=== PATIENT | female | born 1960 | race African-American/Black ===

== ENCOUNTER 2019-09-15 11:21 | Inpatient (IN) | payer MEDICAID ==
[~2019-09-15] VITALS: Ht 162.6 cm; Wt 63.5 kg
[2019-09-15] MEDS ORDERED: MORPHINE SULFATE INJ 4 MG/ML DISP.SYRIN ONE (11:40)
[2019-09-15] MEDS ORDERED: ONDANSETRON HCL/PF 4 MG/2 ML VIAL ONE ×2 (11:40→13:28)
--- NOTE | 2019-09-15 11:40 | NUR ---
RLQ ABDOMINAL PAIN W/ N/V SINCE TUESDAY. PATIENT A/OX4, BREATHING EVEN AND UNLABORED, NO SOB NOTED, NEEDS ATTENDED, KEPT COMFORTABLE. PATIENT ASSISTED TO RESTROOM, WAS ABLE TO PROVIDE URINE SAMPLE.
[2019-09-15] MEDS ORDERED: HYDROMORPHONE 1 MG/1 ML DISP.SYRIN ONE (11:59)
[2019-09-15] MEDS ORDERED: IV NS 0.9% 500 ML BAG IV ONE (12:00)
[2019-09-15] MEDS ORDERED: MORPHINE SULFATE INJ 2 MG/ML DISP.SYRIN IV ONE (12:00)
[2019-09-15] MEDS ORDERED: ONDANSETRON HCL/PF 4 MG/2 ML VIAL IVP ONE (12:00)
--- NOTE | 2019-09-15 12:00 | NUR ---
DR. LYONS CANCELLED ORDER FOR MORPHINE AND CHANGED TO DILAUDID 1MG IV. MORPHINE ALREADY OPENED AND WILL BE WASTED.
--- NOTE | 2019-09-15 12:07 | NUR ---
MADE AN ERROR ON OMNICELL. WASTED A WHOLE VIAL OF 4MG MORPHINE WITH DEVORA CUBA RN ON PROPER DISPOSAL BIN. 0MG ADMINISTERED.
[2019-09-15 12:15] LABS: BASOPHILS % (AUTO) 0.7 % (0.0-2.0); HEMATOCRIT 42 % (33-45); LYMPHOCYTES # (AUTO) 0.5 /CMM (0.8-4.8); LYMPHOCYTES % (AUTO) 10.2 % (20.0-44.0); MEAN CORPUSCULAR HGB CONC 34 g/dl (31.0-36.0); MEAN CORPUSCULAR VOLUME 104 fL (82-100); MONOCYTES # (AUTO) 0.4 /CMM (0.1-1.30); MONOCYTES % (AUTO) 7.9 % (2.0-12.0); NEUTROPHILS % (AUTO) 81.2 % (43.0-81.0); PLATELET COUNT (AUTO) 121 /CMM (150-450); WHITE BLOOD COUNT (AUTO) 4.9 K/uL (4.3-11.0)
[2019-09-15] MEDS ORDERED: HYDROMORPHONE 1 MG/1 ML DISP.SYRIN IV ONE (12:30)
[2019-09-15 12:52] LABS: BILIRUBIN,DIRECT 1.5 mg/dL (0.0-0.2); CALCIUM, SERUM 9.7 mg/dL (8.5-10.1); CREATININE 0.9 mg/dL (0.6-1.3); POTASSIUM 4.8 mmol/L (3.5-5.1); TOTAL PROTEIN, SERUM 8.8 g/dL (6.4-8.2)
[2019-09-15] MEDS ORDERED: ONDANSETRON HCL/PF - ER 4 MG/2 ML VIAL IV ONE (13:30)
--- NOTE | 2019-09-15 14:58 | NUR ---
BED 119-1
--- NOTE | 2019-09-15 15:15 | NUR ---
REPORT GIVEN TO [place].
--- NOTE | 2019-09-15 16:00 | NUR ---
PATIENT TRANSFERRED TO ROOM 119-1, IN NO DISTRESS. IV LINE INSERTED ON RIGHT THUMB G22, PATIENT ACCIDENTALLY PULLED OUT WRIST G22.
--- NOTE | 2019-09-15 16:15 | NUR ---
ADMIT TO MED SURGE PT ADMITTED TO MS RM 119-1. WITH ADMITTING DX OF PANCREATITIS.APPARENTLY PT WAS COMPLAINING OF SEVERE RUQ PAIN. PT HAS NOT SIGNIFICANT MEDICAL HX EXCEPT FOR PANCREATITIS AND HTN. NKDA. PT IS AOX4. CALM, COOPERATIVE AND PLEASANT. CONTINENT OF B/B. PER PT SHE HAS NOT BEEN WALKING LATELY BECAUSE SHE'S BEEN WEAK. ALTHOUGH SHE IS ABLE TO BUT WITH ASSISTANCE. SKIN INTACT. NO S/S OF SKIN BREAKDOWN NOTED. PT ON CLEAR LIQUID DIET. IV ACCESS NOTED ON R WRIST G22. IV FLUIDS STARTER NS @ 125ML/HR. DR. LEMOS AWARE OF PTS ADMISSION. WILL CONT TO MONITOR.
[2019-09-15 16:30] VITALS: BP 148/95
[2019-09-15] MEDS ORDERED: HYDROCODONE/APAP 5/325MG 1 EACH TABLET PO PRN (16:30)
[2019-09-15] MEDS ORDERED: MAGNESIUM HYDROXIDE 30 ML UDC PO PRN (16:30)
[2019-09-15] MEDS ORDERED: MAG HYDROX/AL HYDROX/SIMETH 30 ML UDC PO PRN (16:30)
[2019-09-15] MEDS ORDERED: ACETAMINOPHEN 325 MG TABLET PO PRN (16:30)
[2019-09-15] MEDS ORDERED: Z GUARD REMEDY 2 OZ OINT TP PRN (16:30)
[2019-09-15] MEDS: IV NS 0.9% 1,000 ML IV SCH (16:35)
[2019-09-15 16:37] VITALS: BP 148/95
[2019-09-15] MEDS: MORPHINE SULFATE INJ 2 MG/ML DISP.SYRIN IV PRN ×2 (16:37→21:07)
[2019-09-15] MEDS: ONDANSETRON HCL/PF 4 MG/2 ML VIAL IVP PRN (17:17)
--- NOTE | 2019-09-15 18:52 | NUR ---
MS RN CLOSING NOTES PT IN BED, PT IS AOX4. CALM, COOPERATIVE AND PLEASANT. CONTINENT OF B/B. PER PT SHE HAS NOT BEEN WALKING LATELY BECAUSE SHE'S BEEN WEAK. ALTHOUGH SHE IS ABLE TO BUT WITH ASSISTANCE. SKIN INTACT. NO S/S OF SKIN BREAKDOWN NOTED. PT ON CLEAR LIQUID DIET. IV ACCESS NOTED ON R WRIST G22. IV FLUIDS RUNNING NS @ 125ML/HR. SAFETY PRECAUTIONS IN PLACE. BED LOCKED AND IN LOW POSITION. SIDE RAILS UP. CALL LIGHT WITHIN REACH. WILL ENDORSE TO NEXT SHIFT.
--- NOTE | 2019-09-15 19:22 | NUR ---
MS RN RECEIVE PT IN BED A/O X 4 RESPIRATIONS EVEN AND UNLABORED, NO S/S OF DISTRESS, STABLE. SAFETY MEASURES AT ALL TIMES. WILL CONT TO MONITOR,
[2019-09-15 20:00] VITALS: BP 137/89
--- NOTE | 2019-09-15 23:11 | NUR ---
MS RN PT C/O PAIN IN HER RIGHT UPPER ABDOMEN IS BACK SHE SAID THAT MORPHINE 2 MG HELPS HER FEW HOURS. PATIENT REQUESTING IF ITS POSSIBLE TO INCREASE HER DOSAGE OF MORPHINE 2MG IVP. DIANA ROSENBERG NP, RELAYED PT CONCERNS RECEIVED ORDERS FROM HOSPITALIST "WHEN HER NEXT DOSE OF MORPHINE IS DUE YOU CAN GIVE HER 1 TIME DOSE OF 4 MG MORPHINE, THEN REVERT BACK TO EXISTING ORDER OF 2 MG FOR SUBSEQUENT DOSES". NOTED AND CARRIED OUT READ BACK AND VERIFIED ORDERS. EXPLAINED TO THE PT. PT VERBALIZED UNDERSTANDING AND APPRECIATIVE.
[2019-09-16] MEDS: IV NS 0.9% 1,000 ML IV SCH ×2 (01:07→08:30)
[2019-09-16] MEDS ORDERED: MORPHINE SULFATE INJ 4 MG/ML DISP.SYRIN IV ONE (01:07)
[2019-09-16 04:00] VITALS: BP 153/82
[2019-09-16] MEDS: MORPHINE SULFATE INJ 2 MG/ML DISP.SYRIN IV PRN ×5 (06:17→22:33)
[2019-09-16] MEDS: ONDANSETRON HCL/PF 4 MG/2 ML VIAL IVP PRN ×4 (06:17→22:34)
--- NOTE | 2019-09-16 06:23 | NUR ---
MS RN PT SLEPT WELL. MONITORED FOR PAIN. ALL NEEDS ATTENDED AND ANTICIPATED, KEPT CLEAN, DRY AND COMFORTABLE. GOOD SKIN CARE AT ALL TIMES. NURSING CARE RENDERED, SAFETY MEASURES AT ALL TIMES. WILL ENDORSE TO NEXT SHIFT.
--- NOTE | 2019-09-16 07:52 | NUR ---
M/S RN OPENING NOTES RECEIVED PT ON BED, A/OX4, RESPONSIVE TO ALL STIMULI. RESPIRATION EVEN AND NON LABORED WITH NO ACUTE RESPIRATORY DISTRESS. SKIN WARM TO TOUCH AND DRY. PAIN LEVEL 7 1/2 STATED - PAIN MEDICATION ADMINISTERED BY NIGHT NURSE AT 06 AM SLOWLY BEING EFFECTIVE PER EVALUATION WITH PT STATEMENT. IV SITE AT RIGHT WRIST #22 RUNNING NS AT 125 ML/HR, PLAN OF CAR WITH PAIN MANAGEMENT DISCUSSED WITH PT. CALL LIGHT WITHIN REACH. BED IN LOW LOCKED POSITION, SRX2 UP FOR SAFETY. WILL CONTINUE TO EVALUATE CARE.
[2019-09-16 08:00] VITALS: BP 126/80
[2019-09-16 08:35] VITALS: BP 126/80
--- NOTE | 2019-09-16 09:45 | NUR ---
M/S RN NOTES ASSISTED PT TO THE BATHROOM, WALKING UNSTEADY. VOIDED. ORAL HYGIENE GIVEN. WILL MONITOR CLOSELY
[2019-09-16 09:49] LABS: CALCIUM, SERUM 8.9 mg/dL (8.5-10.1); CREATININE 0.9 mg/dL (0.6-1.3); MAGNESIUM 1.6 mg/dL (1.8-2.4); PHOSPHORUS 2.5 mg/dL (2.5-4.9); POTASSIUM 3.8 mmol/L (3.5-5.1)
[2019-09-16 09:55] LABS: ALBUMIN 2.8 g/dL (3.4-5.0); BILIRUBIN,DIRECT 0.4 mg/dL (0.0-0.2); BILIRUBIN,TOTAL 2.2 mg/dL (0.2-1.0); TOTAL PROTEIN, SERUM 7.5 g/dL (6.4-8.2)
[2019-09-16 10:40] LABS: WHITE BLOOD COUNT (AUTO) 6.3 K/uL (4.3-11.0)
[2019-09-16 10:41] LABS: BASOPHILS % (AUTO) 0.2 % (0.0-2.0); EOSINOPHILS % (AUTO) 0.1 % (0.0-6.0); HEMATOCRIT 44 % (33-45); HEMOGLOBIN 14.1 g/dL (11.5-14.8); LYMPHOCYTES % (AUTO) 6.3 % (20.0-44.0); MEAN CORPUSCULAR HGB CONC 32 g/dl (31.0-36.0); MEAN CORPUSCULAR VOLUME 109 fL (82-100); MONOCYTES % (AUTO) 6.1 % (2.0-12.0); NEUTROPHILS # (AUTO) 5.5 /CMM (1.8-8.9); NEUTROPHILS % (AUTO) 87.3 % (43.0-81.0); PLATELET COUNT (AUTO) 59 /CMM (150-450); RED BLOOD CELL COUNT(AUTO) 4.03 MIL/uL (4.0-5.2)
[2019-09-16 10:42] LABS: LYMPHOCYTES # (AUTO) 0.4 /CMM (0.8-4.8); MONOCYTES # (AUTO) 0.4 /CMM (0.1-1.30)
[2019-09-16 10:50] LABS: BAND % (MANUAL) 2 % (0.0-5.0); LYMPHOCYTES % (MANUAL) 11 % (16-48); MONOCYTES % (MANUAL) 7 % (0-11.0); NEUTROPHILS % (MANUAL) 80 (42-76)
--- NOTE | 2019-09-16 13:15 | NUR ---
M/S RN NOTES PT ASLEEP BUT EASILY AROUSABLE. COMFORTABLE AT THIS TIME, WILL CONTINUE TO MONITOR
[2019-09-16] MEDS: Magnesium 1GM/D5W 100ML PREMIX 100 ML IV SCH ×2 (13:17→15:04)
--- NOTE | 2019-09-16 15:06 | NUR ---
M/S RN NOTES PT ROUNDING, PT AWAKE AND RESTING. CONTINUE TO BE NAUSEA, LUNCH STILL ON BEDSIDE AND TRYING TO TOLERATE FOOD. WILL CONTINUE TO MONITOR
[2019-09-16 16:00] VITALS: BP 143/87
[2019-09-16 16:06] VITALS: BP 143/87
[2019-09-16] MEDS: IV NS 0.9% 1,000 ML IV PRN (18:36)
--- NOTE | 2019-09-16 18:50 | NUR ---
M/S RN CLOSING NOTES PT A/OX4, RESPONSIVE ETO ALL STIMULI. RESPIRATION EVEN AND NON LABORED WITH NO ACUTE RESPIRATORY DISTRESS. PAIN AT 6/10 ON RIGHT LOWER ABD, HAD MORPHINE AT 1802 FOR THE LAST DOSE, SLOWLY BEING EFFECTIVE. ABD DISTENDED WITH FLATUS PRESENT. I&O ASSESSED, PT STATED LAST BM X2 WEEKS AGO "BEFORE I GET SICK WITH LITTLE FORMED STOOL" STATED, MOM OFFERED STATED SHE'LL TRY. PAGED DR. LEMOS FOR THE REPORT. SKIN WARM TO TOUCH AND DRY. RIGHT WRIST IV SITE PATENT IN FLUSHING RUNNING NS AT 125 ML/HR. ALL CONCERNS ATTENDED. CALL LIGHT WITHIN REACHED. BED IN LOW LOCKED POSITION,SIDE RAILS UP X2 FOR SAFETY. ENDORSED PT CARE TO NEXT SHIFT.
--- NOTE | 2019-09-16 18:53 | NUR ---
M/S RN NOTES DR. LEMOS RESPONDED BACK. TO OFFER MOM ORDERED, IF REFUSED - TO CONTINUE TO MONITOR. PT NOTIFIED. ENDORSED REPORT TO NEXT SHIFT.
[2019-09-16 20:00] VITALS: BP 153/89
--- NOTE | 2019-09-17 00:30 | NUR ---
MS RN NOTES PATIENT RECEIVED BY CABLE TELEVISION ACCESS COORDINATOR, REPORT GIVEN AT BEDSIDE, PATIENT IN BED RESTING. NO SIGNS OF SOB, NO SIGNS OF RESPIRATORY DISTRESS, WITH EVEN NON-LABORED BREATHING. PATIENT SKIN INTACT AND DRY. SAFETY PRECAUTIONS IMPLEMENTED, WITH BED IN THE LOWEST POSITION, BED LOCKED, BILATERAL SIDE RAILS UP, BED ALARM ON, AND CALL LIGHT WITHIN EASY REACH OF PATIENT. WILL CONTINUE TO MONITOR PATIENT.
[2019-09-17] MEDS: IV NS 0.9% 1,000 ML IV PRN ×2 (02:46→14:55)
[2019-09-17] MEDS: MORPHINE SULFATE INJ 2 MG/ML DISP.SYRIN IV PRN ×4 (03:25→23:35)
--- NOTE | 2019-09-17 03:30 | NUR ---
MS RN NOTES PATIENT STATING THROBBING, SHARP PAIN LOCATED ON THE RIGHT SIDE RADIATING TO HER LOWER BACK. PROVIDED COMFORT MEASURES TO PATIENT. PATIENT RATING HER PAIN LEVEL 10/10. VITAL SIGNS BLOOD PRESSURE 153/93 PULSE 98 SPO2 96%. ADMINISTERED MORPHINE PRN 2mg/ml. WILL REASSESS PATIENT PAIN LEVEL AND WILL CONTINUE TO MONITOR PATIENT.
[2019-09-17 04:00] VITALS: BP 153/93
[2019-09-17 07:07] LABS: CALCIUM, SERUM 7.8 mg/dL (8.5-10.1); CREATININE 0.6 mg/dL (0.6-1.3); MAGNESIUM 1.7 mg/dL (1.8-2.4); POTASSIUM 2.9 mmol/L (3.5-5.1)
--- NOTE | 2019-09-17 07:16 | NUR ---
MS RN NOTES PATIENT IN BED SLEEPING, AWAKEN BY NAME AND LIGHT TOUCH. PATIENT ON ROOM AIR WITH NO SIGNS OF SOB, NO SIGNS OF RESPIRATORY DISTRESS, AND WITH EVEN NON-LABORED BREATHING. PATIENT IV ACCESS INTACT AND PATENT RUNNING NS AT 125ML/HR. SKIN KEPT CLEAN AND DRY. MET ALL OF PATIENT NEEDS, PROVIDED COMFORT MEASURES TO PATIENT. SAFETY PRECAUTIONS IMPLEMENTED WITH BED IN THE LOWEST POSITION, HOB IN SEMI-FOWLERS, BED LOCKED, BED ALARM ON, BILATERAL SIDE RAILS UP, AND CALL LIGHT WITHIN EASY REACH OF PATIENT. WILL ENDORSE PLAN OF CARE TO UPCOMING DAYSHIFT NURSE.
--- NOTE | 2019-09-17 07:47 | NUR ---
MS RN OPENING NOTES RECEIVED PATIENT IN BED, ASLEEP. PATIENT ON ROOM AIR; BREATHING IS EVEN AND SYMMETRICAL WITH NO SOB PRESENT AT THIS TIME. NO SIGNS OF PAIN SUCH FACIAL GRIMACING, MOANING OR GUARDING. R WRIST IV ACCESS GAUGE #[address], INTACT AND PATENT INFUSING NS AT 125 MLS/HR. SAFETY PRECAUTIONS IN PLACE; BED IN LOW POSITION AND LOCKED, RAILS UP X2, CALL LIGHT WITHIN REACH. WILL CONTINUE TO MONITOR PATIENT.
[2019-09-17 08:00] VITALS: BP 146/95
[2019-09-17] MEDS: ONDANSETRON HCL/PF 4 MG/2 ML VIAL IVP PRN (08:17)
[2019-09-17] MEDS: Magnesium 1GM/D5W 100ML PREMIX 100 ML IV SCH ×2 (08:17→09:53)
[2019-09-17] MEDS ORDERED: POTASSIUM CHLORIDE 20 MEQ TAB.PRT.SR PO ONE (08:30)
[2019-09-17 12:37] VITALS: BP 146/95
[2019-09-17 16:00] VITALS: BP 149/94
--- NOTE | 2019-09-17 19:05 | NUR ---
MS RN CLOSING NOTES PATIENT IN BED, DOSING INTERMITTENTLY. PATIENT ON ROOM AIR; BREATHING IS EVEN AND SYMMETRICAL WITH NO SOB PRESENT AT THIS TIME. PAIN MEDS ADMINISTERED DURING THE DAY FOR ACUTE PAIN IN THE UPPER LEFT FLANK. R WRIST IV ACCESS ACCIDENTLY PULLED OUT BY PATIENT; WILL BE REPLACED SHORTLY BY ER SPECIALIST; PT IS HARD STIK. SAFETY PRECAUTIONS IN PLACE; BED IN LOW POSITION AND LOCKED, RAILS UP X2, CALL LIGHT WITHIN REACH. WILL ENDORSE TO RUSSIAN LANGUAGE PROFESSOR NURSE.
[2019-09-17 20:00] VITALS: BP 158/88
[2019-09-18 04:00] VITALS: BP 149/82
--- NOTE | 2019-09-18 05:34 | NUR ---
MS RN NOTES RECEIVED PATIENT IN BED AND AWAKE. PT A/O X2-3 AND ABLE TO MAKE NEEDS KNOWN. RESPIRATIONS EVEN AND UNLABORED WITH NO S/S OF ACUTE DISTRESS OR SOB NOTED. NO COMPLAINTS OF PAIN AT THIS TIME. PT NOTED WITH R WRIST IV ACCESS GAUGE #[address], INTACT AND PATENT INFUSING NS AT 125 MLS/HR. SAFETY MEASURES IN PLACE WITH BED IN LOWEST LOCKED POSITION WITH SIDE RAILS UP X2. CALL LIGHT WITHIN REACH. WILL CONTINUE TO MONITOR. Addendum: 09/18/19 at 0552 by MARYAM BANSAL RN WRONG TIME DOCUMENTED. 09/17/191914.
[2019-09-18] MEDS: IV NS 0.9% 1,000 ML IV PRN ×2 (06:02→16:25)
[2019-09-18 07:11] LABS: CALCIUM, SERUM 8.3 mg/dL (8.5-10.1); CREATININE 0.6 mg/dL (0.6-1.3); MAGNESIUM 1.6 mg/dL (1.8-2.4)
--- NOTE | 2019-09-18 07:45 | NUR ---
RN MS NOTES PT IN BED, AWAKE, ALERT AND ORIETNED, WITH COMPLAINT OF ABDOMINAL PAIN AND NAUSEA, NOT IN DISTRESS, IV FLUIDS INFUSING WELL, CALL LIGHT WITHIN REACH, NEEDS ATTENDED.
--- NOTE | 2019-09-18 07:45 | NUR ---
MS RN NOTES PATIENT IN BED AND AWAKE. PT A/O X2-3 AND ABLE TO MAKE NEEDS KNOWN. RESPIRATIONS EVEN AND UNLABORED WITH NO S/S OF ACUTE DISTRESS OR SOB NOTED THROUGHOUT SHIFT. NO COMPLAINTS OF PAIN AT THIS TIME. PT NOTED WITH R WRIST IV ACCESS GAUGE #[address], INTACT AND PATENT INFUSING NS AT 125 MLS/HR. SAFETY MEASURES IN PLACE WITH BED IN LOWEST LOCKED POSITION WITH SIDE RAILS UP X2. CALL LIGHT WITHIN REACH. WILL ENDORSE TO ONCOMING NURSE FOR CHARLEY.
[2019-09-18 07:47] LABS: POTASSIUM 2.5 mmol/L (3.5-5.1)
[2019-09-18 08:00] VITALS: BP 152/91
[2019-09-18] MEDS: ONDANSETRON HCL/PF 4 MG/2 ML VIAL IVP PRN ×2 (08:08→21:05)
[2019-09-18] MEDS: MORPHINE SULFATE INJ 2 MG/ML DISP.SYRIN IV PRN ×3 (08:08→21:16)
[2019-09-18] MEDS: Magnesium 1GM/D5W 100ML PREMIX 100 ML IV SCH ×2 (10:17→11:49)
[2019-09-18] MEDS ORDERED: NEUTRA PHOS 1 POWD.PACKET PO ONE (11:30)
--- NOTE | 2019-09-18 11:44 | NUR ---
RN MS NOTES PT IN BED, SEEN AND EXAMINED BY DR. FREDERICK, PLAN OF CARE DISCUSSED WITH PT, VERBALIZED UNDERSTANDING, ORDERS GIVEN, NOTED AND CARRIED OUT.
[2019-09-18] MEDS ORDERED: POTASSIUM CHLORIDE 20 MEQ TAB.PRT.SR PO ONE ×2 (12:00→16:00)
[2019-09-18 16:00] VITALS: BP 167/92
--- NOTE | 2019-09-18 17:51 | NUR ---
RN MS NOTES NOTED PT WITH ELEVATED BP, DR. FREDERICK INFORMED, NEW ORDER GIVEN, NOTED AND CARRIED OUT.
[2019-09-18] MEDS: LOSARTAN POTASSIUM 25 MG TABLET PO SCH (18:04)
--- NOTE | 2019-09-18 18:34 | NUR ---
RN MS NOTES PT IN BED, RESTING, PAIN MEDS GIVEN FOR ABDOMINAL PAIN, NOT IN DISTRESS, CALL LIGHT WITHIN REACH, TOLERATES CURRENT DIET, ALL NEEDS ATTENDED.
--- NOTE | 2019-09-18 19:15 | NUR ---
MS RN: RECEIVED PATIENT Patient in bed, awake. On room air, denies SOB. IVF infusing. Abdomen tender, distended, reports soreness. Passing gas. Denies nausea, no vomiting. Maintained safety.
[2019-09-18 20:00] VITALS: BP 151/87
[2019-09-18 21:00] VITALS: BP 181/87
--- NOTE | 2019-09-18 21:17 | NUR ---
MS RN: N/V elevated BP Patient vomited x1 with c/o nausea. BP elevated 181/87, c/o abdominal pain /. Notified Dr. Terry with elevated BP. Medicated patient with PRN Morphine, will reassess pain level and BP. Fall precaution maintained.
--- NOTE | 2019-09-18 21:46 | NUR ---
MS RN: PAIN REASSESSMENT Pain scale 5/10 after PRN Morphine, pain improving. NV resolved with PRN Zofran.
[2019-09-18 23:16] VITALS: BP 145/86
--- NOTE | 2019-09-18 23:17 | NUR ---
MS RN: BP BP improved 145/86 HR 96, reports pain level 4/10.
[2019-09-19 04:00] VITALS: BP 141/97
[2019-09-19] MEDS: IV NS 0.9% 1,000 ML IV PRN ×2 (05:00→18:57)
--- NOTE | 2019-09-19 06:07 | NUR ---
MS RN: END OF SHIFT REPORT Patient in bed, stable on room air. Full liquid diet, episode of N/V resolved with PRN Zofran. Report passing gas, no BM this shift. IVF infusing. BP improved. Fall precaution maintained.
--- NOTE | 2019-09-19 07:20 | NUR ---
RN OPENING NOTE: RECEIVED PATIENT IN BED THIS MORNING. ALERT AND ORIENTED X3. ON ROOM AIR. NO SIGNS OF RESPIRATORY DISTRESS NOTED. PATIENT C/O NAUSEA AND PAIN. OTHERWISE, NO ACUTE DISTRESS NOTED. PATIENT IS CURRENTLY ON A FULL LIQUID DIET. #18 RAC, C/D/I, FLUSHING WELL, NO SIGNS OF COMPLICATIONS NOTED, RUNNING NS @ 125CC/HR. SAFETY MEASURES IMPLICATED, BED IN LOWEST POSITION, LOCKED, SIDE RAILS UP X2, WILL CONTINUE TO MONITOR PATIENT FOR CHANGES.
[2019-09-19] MEDS: ONDANSETRON HCL/PF 4 MG/2 ML VIAL IVP PRN ×2 (07:23→15:53)
[2019-09-19 08:00] VITALS: BP 118/76
[2019-09-19 08:23] LABS: BASOPHILS % (AUTO) 0.3 % (0.0-2.0); EOSINOPHILS % (AUTO) 0.1 % (0.0-6.0); HEMATOCRIT 34 % (33-45); HEMOGLOBIN 11.6 g/dL (11.5-14.8); LYMPHOCYTES # (AUTO) 0.4 /CMM (0.8-4.8); LYMPHOCYTES % (AUTO) 7.6 % (20.0-44.0); MEAN CORPUSCULAR HGB CONC 34 g/dl (31.0-36.0); MEAN CORPUSCULAR VOLUME 103 fL (82-100); MONOCYTES # (AUTO) 0.5 /CMM (0.1-1.30); MONOCYTES % (AUTO) 8.7 % (2.0-12.0); NEUTROPHILS # (AUTO) 4.5 /CMM (1.8-8.9); NEUTROPHILS % (AUTO) 83.3 % (43.0-81.0); PLATELET COUNT (AUTO) 55 /CMM (150-450); RED BLOOD CELL COUNT(AUTO) 3.32 MIL/uL (4.0-5.2); WHITE BLOOD COUNT (AUTO) 5.4 K/uL (4.3-11.0)
[2019-09-19 08:35] LABS: BAND % (MANUAL) 1 % (0.0-5.0); LYMPHOCYTES % (MANUAL) 8 % (16-48); MONOCYTES % (MANUAL) 8 % (0-11.0); NEUTROPHILS % (MANUAL) 83 (42-76)
[2019-09-19 08:37] LABS: CALCIUM, SERUM 8.3 mg/dL (8.5-10.1); CREATININE 0.5 mg/dL (0.6-1.3); MAGNESIUM 1.5 mg/dL (1.8-2.4); PHOSPHORUS 2.5 mg/dL (2.5-4.9)
--- NOTE | 2019-09-19 08:56 | NUR ---
CONTACTED DR FREDERICK REGARDING POTASSIUM 2.0, NO RESPONSE YET, AWAITING CALL BACK Addendum: 09/19/19 at 1001 by DIANNE BARRIOS RN AWARE OF K+ LEVELS
[2019-09-19] MEDS: LOSARTAN POTASSIUM 25 MG TABLET PO SCH (09:14)
[2019-09-19] MEDS: MORPHINE SULFATE INJ 2 MG/ML DISP.SYRIN IV PRN ×3 (09:14→20:45)
[2019-09-19] MEDS: Magnesium 1GM/D5W 100ML PREMIX 100 ML IV SCH ×3 (10:29→12:51)
[2019-09-19] MEDS: POTASSIUM CL. PREMIX PERIPHER. 50 ML IV SCH ×11 (10:36→21:42)
[2019-09-19] MEDS ORDERED: DIATR MEGLU/DIATRIZOATE SODIUM 120 ML BOTTLE (GASTROGRAPHIN) ONE (14:00)
[2019-09-19 16:00] VITALS: BP 124/80
--- NOTE | 2019-09-19 16:02 | NUR ---
POTASSIUM ADMINISTRATION IS LATE DOSES D/T PATIENT BEING TAKEN OUT OF UNIT FOR PROCEDURE Addendum: 09/19/19 at 2019 by DIANNE BARRIOS RN SPOKE TO ELMER FROM PHARMACY AND INFORMED HIM THAT PATIENT WAS LATE ON HIS DOSES D/T PROCEDURE. 2 LAST DOSES POSTPONED TO PM SHIFT TO ADMINISTER, PM NURSE AWARE
[2019-09-19 18:00] VITALS: BP 124/80
--- NOTE | 2019-09-19 19:17 | NUR ---
PATIENT FOUND SITTING ON THE FLOOR NEXT TO COMMODE,PER PATIENT SHE SLIDE AND DENEIS SHE HIT HER HEAD,ABLE TO DO ROM ,PATIENT VRBALIZED NO MORE XRAYS.DR. YOLY ORTIZ AWAITS RESPONSE.
--- NOTE | 2019-09-19 19:25 | NUR ---
PATIENT WAS FOUND BY STAFF ON THE FLOOR NEXT TO PATIENT'S BED. PER PATIENT, SHE WAS ON THE COMMODE URINATING, SOME OF THE URINE HAS FALLEN ON THE FLOOR AND WHEN THE PATIENT TRIED TO GET UP TO GO BACK TO BED SHE SLIPPED ON THE URINE AND FELL. PATIENT ONLY C/O PAIN TO THE LEFT EASLEY, DR FREDERICK CONTACTED TO INFORM ABOUT INCIDENT WITH ORDERED FOR XR TO THAT EXTREMITY. PATIENT IS ALERT AND ORIENTED X4 AND STATES SHE DOES NOT HAVE ANY OTHER PAIN. ASSISTED PATIENT TO BED. NEURO INTACT. NO ACUTE DISTRESS NOTED. ONCOMING RN WILL CONTINUE TO MONITOR PATIENT. RE-EDUCATED PATIENT TO NEVER LEAVE BED WITHOUT ASSISTANCE/PRESSING THE CALL LIGHT. SAFETY MEASURES WERE IMPLEMENTED, BED IN LOWEST POSITION, LOCKED, SIDE RAILS UP X2, CALL LIGHT WITHIN REACH
--- NOTE | 2019-09-19 19:45 | NUR ---
MS1 RN NOTES RECEIVED ON BED A/O X4,BREATHING REGULAR,NOT IN ANY FORM OF DISTRESS.NS AT 125ML/HR RATE IN PROGRESS ON RIGHT AC VIA IV PUMP.NPO STATUS, RULING OUT SMALL BOWEL OBSTRUCTION.PAIN TOLERABLE AT THE MOMENT.AMBULATE WITH ASSIST.CALL LIGHT IN REACH,NEEDS ANTICIPATED.
[2019-09-19 20:00] VITALS: BP 155/96
--- NOTE | 2019-09-19 20:20 | NUR ---
RN CLOSING NOTE: PATIENT IS CURRENTLY RESTING IN BED. NO SIGNS OF RESPIRATORY DISTRESS NOTED. NO ACUTE DISTRESS NOTED. PATIENT IS NPO. SAFETY MEASURES IMPLICATED, BED IN LOWEST POSITION, LOCKED, SIDE RAILS UP X2. ENDORSED TO ONCOMING RN FOR CONTINUITY OF CARE.
--- NOTE | 2019-09-19 20:45 | NUR ---
MS1 RN NOTES C/O ABDOMINAL PAIN 8/10 ON PAIN SCALE.MEDICATED WITH MORPHINE 2MG IV ORDERED
--- NOTE | 2019-09-20 01:45 | NUR ---
MS RN NOTES AWAKE,ASSISTED TO BEDSIDE COMMODE,VOIDED
[2019-09-20] MEDS: IV NS 0.9% 1,000 ML IV PRN ×2 (01:53→16:46)
[2019-09-20 04:00] VITALS: BP 151/80
[2019-09-20] MEDS: ONDANSETRON HCL/PF 4 MG/2 ML VIAL IVP PRN (04:37)
[2019-09-20] MEDS: MORPHINE SULFATE INJ 2 MG/ML DISP.SYRIN IV PRN ×3 (04:37→21:14)
--- NOTE | 2019-09-20 05:37 | NUR ---
MS RN NOTES C/O ABDOMINAL PAIN 8/10 ON PAIN SCALE,MEDICATED WITH MORPHINE 2MG IV ORDERED,ALONG WITH ZOFRAN 4MG IV FOR FEELING NAUSEATED.KEPT NPO ORDERED,FOR POSSIBLE SMALL BOWEL OBSTRUCTION.IN NO ACUTE DISTRESS.
--- NOTE | 2019-09-20 07:40 | NUR ---
RN OPENING NOTE: RECEIVED PATIENT IN BED THIS MORNING. ALERT AND ORIENTED X3. ON ROOM AIR. NO SIGNS OF RESPIRATORY DISTRESS NOTED. NO C/O PAIN/NAUSEA AT THIS TIME. NO ACUTE DISTRESS NOTED. PATIENT IS CURRENTLY NPO. #18 RAC, C/D/I, FLUSHING WELL, NO SIGNS OF COMPLICATIONS NOTED, RUNNING NS @ 125CC/HR. SAFETY MEASURES IMPLICATED, BED IN LOWEST POSITION, LOCKED, SIDE RAILS UP X2, EDUCATED PATIENT TO CALL FOR ASSISTANCE WHEN WANTING TO GET OUT OF BED. WILL CONTINUE TO MONITOR PATIENT FOR CHANGES.
[2019-09-20 08:00] VITALS: BP 143/83
[2019-09-20 08:23] LABS: BASOPHILS % (AUTO) 0.3 % (0.0-2.0); EOSINOPHILS % (AUTO) 0.3 % (0.0-6.0); HEMATOCRIT 34 % (33-45); HEMOGLOBIN 11.6 g/dL (11.5-14.8); LYMPHOCYTES # (AUTO) 0.5 /CMM (0.8-4.8); LYMPHOCYTES % (AUTO) 11.1 % (20.0-44.0); MEAN CORPUSCULAR HGB CONC 34 g/dl (31.0-36.0); MEAN CORPUSCULAR VOLUME 102 fL (82-100); MONOCYTES # (AUTO) 0.6 /CMM (0.1-1.30); NEUTROPHILS # (AUTO) 3.3 /CMM (1.8-8.9); NEUTROPHILS % (AUTO) 74.3 % (43.0-81.0); PLATELET COUNT (AUTO) 58 /CMM (150-450); RED BLOOD CELL COUNT(AUTO) 3.32 MIL/uL (4.0-5.2); WHITE BLOOD COUNT (AUTO) 4.4 K/uL (4.3-11.0)
[2019-09-20 08:34] LABS: CALCIUM, SERUM 8.2 mg/dL (8.5-10.1); CREATININE 0.5 mg/dL (0.6-1.3); MAGNESIUM 1.6 mg/dL (1.8-2.4); PHOSPHORUS 2.4 mg/dL (2.5-4.9)
[2019-09-20 08:58] LABS: LYMPHOCYTES % (MANUAL) 13 % (16-48); MONOCYTES % (MANUAL) 11 % (0-11.0); NEUTROPHILS % (MANUAL) 76 (42-76)
[2019-09-20] MEDS: LOSARTAN POTASSIUM 25 MG TABLET PO SCH (09:00)
[2019-09-20] MEDS ORDERED: POTASSIUM CL. PREMIX PERIPHER. 50 ML IV SCH (09:11)
[2019-09-20] MEDS ORDERED: POTASSIUM CHLORIDE 10 MEQ/50 ML PREMIXED IVPB FOR PERIPHERAL LINE IV ONE (09:30)
--- NOTE | 2019-09-20 10:04 | NUR ---
PER DR FREDERICK, OK TO GIVE K+ PO
[2019-09-20] MEDS ORDERED: POTASSIUM CHLORIDE 20 MEQ TAB.PRT.SR PO ONE ×2 (11:00→15:00)
[2019-09-20] MEDS: Magnesium 1GM/D5W 100ML PREMIX 100 ML IV SCH ×2 (11:09→12:41)
[2019-09-20 16:00] VITALS: BP 160/100
[2019-09-20] MEDS ORDERED: Sodium Phosphate 15 MMOL in IV NS 0.9% 245 ML IV SCH (16:00)
--- NOTE | 2019-09-20 18:50 | NUR ---
PATIENT HAS HAD WATERY STOOL SINCE LAST NIGHT PER RECRUITING INTERN NURSE. AWARE. WANTS TO COLLECT STOOL FOR CDIFF. WAS UNABLE TO RETRIEVE A SAMPLE. WILL ENDORSE TO ONCOMING SHIFT TO OBTAIN SAMPLE.
--- NOTE | 2019-09-20 19:25 | NUR ---
RN CLOSING NOTE: PATIENT IS CURRENTLY RESTING IN BED. NO SIGNS OF RESPIRATORY DISTRESS NOTED. NO ACUTE DISTRESS NOTED. PATIENT IS NPO. SAFETY MEASURES IMPLICATED, BED IN LOWEST POSITION, LOCKED, SIDE RAILS UP X2. ENDORSED TO ONCOMING RN FOR CONTINUITY OF CARE AND TO COLLECT STOOL FOR C DIFF.
--- NOTE | 2019-09-20 19:50 | NUR ---
VACUUM SYSTEM TESTER NOTES RECEIVED PATIENT IN BED ALERT WAKE IN STABLE CONDITION. BREATHING NORMAL NO SOB NOTED. RESPIRATION EVEN NON LABORED. SKIN INTACT WARM AND DRY TO TOUCH. PATIENT IS CURRENTLY NPO EXPECT MEDS. KEPT CLEAN AND COMFORTABLE. ALL NEEDS ARE ATTENDED. ALL SAFETY MEASURES IN PLACE, SADE RAILS UP. CALL LIGHT WITHIN REACH. WILL CONT TO MONITOR.
[2019-09-20] MEDS ORDERED: METRONIDAZOLE 500MG/ NS 100ML 500 MG in PREMIX 1 EA IV SCH (20:00)
[2019-09-20 20:02] VITALS: BP 155/102
[2019-09-20] MEDS: METRONIDAZOLE 500MG/ NS 100ML 500 MG in PREMIX 1 EA IV SCH (20:10)
--- NOTE | 2019-09-20 21:14 | NUR ---
RN NOTE PATIENT C/O OF MID ABD PAIN 02/03 AND REQUESTING FOR PAIN MEDICATION. PRN MORPHINE GIVEN VIA IV ORDERED. ALL SAFETY MEASURES IN PLACE, SIDE RAILS UP. CALL LIGHT WITHIN REACH. WILL CONT TO MONITOR FOR EFFECTIVENESS.
--- NOTE | 2019-09-20 21:44 | NUR ---
RN NOTE PER PATIENT MORPHINE WAS EFFECTIVE PAIN LOWER TO 4/10.
--- NOTE | 2019-09-20 21:45 | NUR ---
RN NOTE IV PULLED OUT ACCIDENTLY ON LAC. NEW IV INSERTED ON RT HAND.
[2019-09-20] MEDS: LEVOFLOXACIN 500 MG /D5W 100ML 500 MG in PREMIX 1 EA IV SCH (21:59)
[2019-09-20] MEDS ORDERED: LEVOFLOXACIN 500 MG /D5W 100ML 500 MG in PREMIX 1 EA IV SCH (22:00)
[2019-09-21] MEDS: ONDANSETRON HCL/PF 4 MG/2 ML VIAL IVP PRN ×3 (00:07→18:29)
--- NOTE | 2019-09-21 00:07 | NUR ---
RN NOTE PATIENT C/O NAUSEA NO EMESIS PRN ZOFRAN IV GIVEN ORDERED. WILL CONT TO MONITOR.
--- NOTE | 2019-09-21 00:38 | NUR ---
RN NOTE PER PATIENT ZOFRAN WAS EFFECTIVE. NAUSEA SUBSIDE.
--- NOTE | 2019-09-21 01:15 | NUR ---
RN NOTE STOOL SAMPLE COLLECTED AND DROP IT TO THE LAB.
[2019-09-21] MEDS: MORPHINE SULFATE INJ 2 MG/ML DISP.SYRIN IV PRN ×4 (01:38→21:26)
[2019-09-21] MEDS: METRONIDAZOLE 500MG/ NS 100ML 500 MG in PREMIX 1 EA IV SCH ×5 (02:00→21:04)
--- NOTE | 2019-09-21 02:08 | NUR ---
RN NOTE PER PATIENT MORPHINE WAS EFFECTIVE PAIN LOWER TO 3/10.
[2019-09-21 06:17] LABS: BASOPHILS % (AUTO) 0.3 % (0.0-2.0); EOSINOPHILS % (AUTO) 0.2 % (0.0-6.0); HEMATOCRIT 33 % (33-45); HEMOGLOBIN 11.3 g/dL (11.5-14.8); LYMPHOCYTES # (AUTO) 0.3 /CMM (0.8-4.8); LYMPHOCYTES % (AUTO) 8.4 % (20.0-44.0); MEAN CORPUSCULAR HGB CONC 34 g/dl (31.0-36.0); MEAN CORPUSCULAR VOLUME 102 fL (82-100); MONOCYTES # (AUTO) 0.7 /CMM (0.1-1.30); MONOCYTES % (AUTO) 17.7 % (2.0-12.0); NEUTROPHILS # (AUTO) 2.9 /CMM (1.8-8.9); NEUTROPHILS % (AUTO) 73.4 % (43.0-81.0); RED BLOOD CELL COUNT(AUTO) 3.23 MIL/uL (4.0-5.2)
[2019-09-21] MEDS: IV NS 0.9% 1,000 ML IV PRN ×2 (06:26→17:43)
[2019-09-21 06:48] LABS: CALCIUM, SERUM 7.9 mg/dL (8.5-10.1); CREATININE 0.4 mg/dL (0.6-1.3); PHOSPHORUS 2.7 mg/dL (2.5-4.9)
--- NOTE | 2019-09-21 06:50 | NUR ---
RN NOTES PATIENT RESTED WELL DURING SHIFT. BREATHING NORMAL NO SOB NOTED. DURING SHIFT PATIENT RECEIVED PRN MORPHINE X2 FOR ABD PAIN 02/03, AND ZOFRAN X1 FOR NAUSEA NOTED TO BE EFFECTIVE. RIGHT HAND IV PATENT INTACT FLUSHING WELL. PATIENT IS CURRENTLY NPO VITAL SIGNS WNL. F/C INTACT DARNING WELL. KEPT CLEAN AND COMFORTABLE. ALL NEEDS ARE ATTENDED. ALL SAFETY MEASURES IN PLACE, SIDE RAILS UP. CALL LIGHT WITHIN REACH. WILL ENDORSE TO DAY SHIFT NURSE FOR CHARLEY.
--- NOTE | 2019-09-21 07:04 | NUR ---
RN NOTE RECEIVED CALL FROM LAB TALKED TO Woody MCCANN POTASSIUM LEVEL IS 2.0. MD NOTIFIED.
[2019-09-21 07:07] LABS: BAND % (MANUAL) 2 % (0.0-5.0); LYMPHOCYTES % (MANUAL) 10 % (16-48); MONOCYTES % (MANUAL) 17 % (0-11.0); NEUTROPHILS % (MANUAL) 71 (42-76)
--- NOTE | 2019-09-21 07:15 | NUR ---
RN NOTES POTASSIUM IS ENDORSE TO MORNING SHIFT FOR FOLLOW UP.
[2019-09-21 07:17] LABS: PLATELET COUNT (AUTO) 48 /CMM (150-450)
--- NOTE | 2019-09-21 07:24 | NUR ---
RN OPENING NOTES RECEIVED PATIENT IN BED, A/OX 4. VERBALLY RESPONSIVE AND ABLE TO MAKE NEEDS KNOWN. COMPLAINT OF PAIN ON BACK BUT PER PATIENT SHE DOESN'T NEED PAIN MEDS AT THE MOMENT. ON ROOM AIR, SATURATING WELL. IV ACCESS ON R HAND ##24G INTACT, PATENT AND FLUSHED WELL. NO SIGNS OF INFILTRATION WITH RUNNING NS @ 125ML/HR. BED COMMODE AT BEDSIDE. SAFETY MEASURES IN PLACE, CALL LIGHT WITHIN REACH, WILL CONTINUE TO MONITOR
[2019-09-21 08:00] VITALS: BP 160/90
--- NOTE | 2019-09-21 08:20 | NUR ---
RN NOTES DR FREDERICK MADE AWARE OF THE PLATELET LEVEL OF 48 AND POTASSIUM OF 2.0
[2019-09-21] MEDS: LOSARTAN POTASSIUM 25 MG TABLET PO SCH (09:00)
[2019-09-21] MEDS ORDERED: POTASSIUM CL. PREMIX PERIPHER. 50 ML IV SCH (10:00)
[2019-09-21] MEDS ORDERED: POTASSIUM CHLORIDE 20 MEQ TAB.PRT.SR PO ONE ×2 (11:00→18:30)
--- NOTE | 2019-09-21 13:25 | NUR ---
RN NOTES PRODUCT DESIGN MANAGER PT IS HARDSTICK AND WANTED TO HAVE A BREAK.WASN'T ABLE TO DRAW BLOOD, AND WILL JUST COME BACK AGAIN TO REDRAW
[2019-09-21 16:00] VITALS: BP 136/82
--- NOTE | 2019-09-21 16:14 | NUR ---
RN NOTES CALLED LAB TO REMIND THE STAT POTASSIUM LEVEL
--- NOTE | 2019-09-21 17:53 | NUR ---
RN NOTES CALLED DR FREDERICK REGARDING THE RESULT OF POTASSIUM 2.1 ORDERED TO GIVE ANOTHER 40 MEQ X1
--- NOTE | 2019-09-21 18:35 | NUR ---
RN NOTES WENT TO PATIENT ROOM THAT DR FREDERICK ORDERED POTASSIUM TAB 40 MEQ A REPLACEMENT BUT PATIENT REFUSED TO TAKE IT, EXPLAINED RISKS AND BENEFITS STILL REFUSED IT. PER PATIENT " I DON'T WANT TO TAKE POTASSIUM ANYMORE. CHARGE NURSE MADE AWARE AND INFORMED DR FREDERICK ALSO THAT PATIENT HAD EPISODES OF REFUSING MEDS.
--- NOTE | 2019-09-21 19:28 | NUR ---
RN CLOSING NOTES PATIENT IN BED, IN NO APPARENT DISTRESS NOTED. ON ROOM AIR, SATURATING WELL. IV ACCESS ON R HAND, INTACT, PATENT. NO SIGNS OF INFILTRATION. DENIES ANY PAIN AT THE MOMENT. ALL NEEDS MET. SAFETY MEASURES IN PLACE, BED IN LOWEST POSITION AND LOCKED, CALL LIGHT WITHIN REACH. ENDORSED TO PM RN FOR CHARLEY.
[2019-09-21 20:00] VITALS: BP 155/89
[2019-09-21] MEDS: LEVOFLOXACIN 500 MG /D5W 100ML 500 MG in PREMIX 1 EA IV SCH (21:02)
[2019-09-22] MEDS: METRONIDAZOLE 500MG/ NS 100ML 500 MG in PREMIX 1 EA IV SCH (02:43)
[2019-09-22 04:00] VITALS: BP 144/82
[2019-09-22] MEDS: MORPHINE SULFATE INJ 2 MG/ML DISP.SYRIN IV PRN (04:26)
[2019-09-22] MEDS: ONDANSETRON HCL/PF 4 MG/2 ML VIAL IVP PRN (04:29)
[2019-09-22] MEDS: IV NS 0.9% 1,000 ML IV PRN (05:04)
[2019-09-22 06:29] LABS: BASOPHILS % (AUTO) 0.3 % (0.0-2.0); EOSINOPHILS % (AUTO) 0.1 % (0.0-6.0); HEMATOCRIT 33 % (33-45); HEMOGLOBIN 11.2 g/dL (11.5-14.8); LYMPHOCYTES # (AUTO) 0.4 /CMM (0.8-4.8); LYMPHOCYTES % (AUTO) 8.7 % (20.0-44.0); MEAN CORPUSCULAR HGB CONC 34 g/dl (31.0-36.0); MEAN CORPUSCULAR VOLUME 102 fL (82-100); MONOCYTES # (AUTO) 0.9 /CMM (0.1-1.30); MONOCYTES % (AUTO) 18.3 % (2.0-12.0); NEUTROPHILS # (AUTO) 3.7 /CMM (1.8-8.9); NEUTROPHILS % (AUTO) 72.6 % (43.0-81.0); WHITE BLOOD COUNT (AUTO) 5.1 K/uL (4.3-11.0)
[2019-09-22 06:41] LABS: PLATELET COUNT (AUTO) 46 /CMM (150-450)
[2019-09-22 06:57] LABS: CALCIUM, SERUM 7.9 mg/dL (8.5-10.1); CREATININE 0.5 mg/dL (0.6-1.3)
[2019-09-22 07:10] LABS: POTASSIUM 1.9 mmol/L (3.5-5.1)
[2019-09-22 07:30] LABS: MAGNESIUM 1.3 mg/dL (1.8-2.4)
--- NOTE | 2019-09-22 07:30 | NUR ---
rn opening note: Received patient in bed and asleep. Appears comfortable and relaxed. On room air and tolerating well. No SOB noted, breathing equal and unlabored. IV site clean dry patent and intact. IV infusion running and being tolerated well. No pain noted. Call light in reach, bed locked, low and at semi-villarreal's position. Side rails up x2. Safety ensured and observed. Received endorsement that patient refused Potassium replacement from yesterday and lab had informed SHWETA Newton about critical value of 1.9 and low platelet count of 46. Will inform MD assigned to patient today. Will continue to monitor.
--- NOTE | 2019-09-22 07:59 | NUR ---
RN note: patient was seen by Dr. Burnham and explained the need to replace Potassium with patient's critically low level of 1.9 via a Midline to be inserted as well. Patient refused treatment. Dr. Burnham explained risks and benefits of treatment. Patient still refused.
[2019-09-22 08:00] VITALS: BP 119/83
[2019-09-22] MEDS ORDERED: POTASSIUM CL. PREMIX PERIPHER. 50 ML IV SCH (08:00)
[2019-09-22] MEDS ORDERED: Magnesium 1GM/D5W 100ML PREMIX 100 ML IV SCH (08:00)
[2019-09-22 08:15] LABS: LYMPHOCYTES % (MANUAL) 7 % (16-48); MONOCYTES % (MANUAL) 12 % (0-11.0); NEUTROPHILS % (MANUAL) 81 (42-76)
--- NOTE | 2019-09-22 08:37 | NUR ---
RN note: attempted to educate patient via discussion about midline insertion and Potassium replacement via midline. patient declined. Educational material was given to patient. Patient will go home AMA and will be picked up by daughter. Dr. Burnham was informed about patient's decision. Belonging form signed and AMA form signed, copies were given to patient. Addendum: 09/22/19 at 1049 by NATHALIE HONEYCUTT RN skin assessment/body check not done as it was refused by patient.
--- NOTE | 2019-09-22 09:47 | NUR ---
RN note: patient was picked up by daughter. With patient's approval, her daughter was informed about potassium level and plan that was refused by patient. They both acknowledged information. Patient left with daughter via private car.
--- NOTE | 2019-09-22 10:44 | NUR ---
0759: patient was seen by Dr. Burnham and explained the need to replace Potassium with patient's critically low level of 1.9 via a Midline to be inserted as well. Patient refused treatment. Dr. Burnham explained risks and benefits of treatment, stressing the point that might happen if potassium is not replaced. Patient still refused. 0837: attempted to educate patient via discussion about midline insertion and Potassium replacement via midline. patient declined. Educational material was given to patient. Patient will go home AMA and will be picked up by daughter. Dr. Burnham was informed about patient's decision. Belonging form signed and AMA form signed, copies were given to patient. Patient was also given a copy of patient visit report. 0947: Patient was picked up by daughter. With patient's approval, her daughter was informed about potassium level and plan that was refused by patient. They both acknowledged information. Patient left with daughter via private car. 1044: Incident report was completed by Nurse
== END 2019-09-22 10:00 | disposition left against medical advice (07) | DRG 282 ==
LOC: ER 11:22 → EDBD 11:22 → MEDSG1 15:21
PROVIDERS: ADMIT Internal Medicine; ATTEND Family Medicine
DX: K85.20 Alcohol induced acute pancreatitis without necrosis or infection (principal); E87.2 Acidosis; E83.42 Hypomagnesemia; E87.6 Hypokalemia; F10.10 Alcohol abuse, uncomplicated; I10 Essential (primary) hypertension; Z91.19 Patient's noncompliance with other medical treatment and regimen
CPT/HCPCS: 36415; 73590-TC; 74018; 74250-TC; 80048-TC; 80076-TC; 83605-TC; 83690-TC; 83735-TC; 84100-TC; 84132-TC; 85025-TC; 87081-TC; A4216; A9563; G0378; J1170; J1956; J2270; J2405; J3475; J3480; J3490; J7030; J7040; J7050; Q9963

== ENCOUNTER 2019-09-28 03:35 | Inpatient (IN) | payer MEDICAID ==
[~2019-09-28] VITALS: Ht 162.6 cm; Wt 68.0 kg
--- NOTE | 2019-09-28 03:35 | NUR ---
PT BIB EMS FROM HOME C/O SEIZURE WITNESSED BY DAUGHTER PER EMS REPORT. PT IS AAOX2, NOT IN RESPIRATORY DISTRESS ,HOOKED TO MONITOR, KEPT RESTED AND COMFORTABLE, WILL CONTINUE TO MONITOR.
--- NOTE | 2019-09-28 03:40 | NUR ---
SEEN AND EXAMINED BY .
--- NOTE | 2019-09-28 03:43 | NUR ---
CASTRO, PT'S DAUGHTER
--- NOTE | 2019-09-28 03:49 | NUR ---
ER PHLEB AT BEDSIDE FOR BLOOD DRAW.
[2019-09-28 04:07] LABS: BASOPHILS # (AUTO) 0.1 /CMM (0.0-0.2); BASOPHILS % (AUTO) 0.4 % (0.0-2.0); EOSINOPHILS % (AUTO) 0.1 % (0.0-6.0); HEMATOCRIT 35 % (33-45); HEMOGLOBIN 11.6 g/dL (11.5-14.8); LYMPHOCYTES # (AUTO) 0.9 /CMM (0.8-4.8); LYMPHOCYTES % (AUTO) 6.2 % (20.0-44.0); MEAN CORPUSCULAR HGB CONC 34 g/dl (31.0-36.0); MEAN CORPUSCULAR VOLUME 102 fL (82-100); MONOCYTES # (AUTO) 1.3 /CMM (0.1-1.30); MONOCYTES % (AUTO) 8.9 % (2.0-12.0); NEUTROPHILS # (AUTO) 12.7 /CMM (1.8-8.9); NEUTROPHILS % (AUTO) 84.4 % (43.0-81.0); PLATELET COUNT (AUTO) 109 /CMM (150-450); WHITE BLOOD COUNT (AUTO) 15.1 K/uL (4.3-11.0)
--- NOTE | 2019-09-28 04:15 | NUR ---
URINE SPECIMEN VIA STRAIGHT CATH AND SENT TO LAB.
[2019-09-28 04:18] LABS: APPEARANCE,URINE Clear (CLEAR); BILIRUBIN,URINE SMALL (NEGATIVE); BLOOD, URINE Negative Ery/uL (NEGATIVE); COLOR,URINE Yellow (YELLOW); KETONES,URINE 40 (NEGATIVE); LEUKOCYTE ESTERASE ,URINE Negative (NEGATIVE); NITRITE, URINE Negative (NEGATIVE); PH,URINE 8.5 (5.0-8.0); PROTEIN,URINE Negative (NEGATIVE); UGLUCOSE Negative (NEGATIVE)
[2019-09-28 04:21] LABS: BILIRUBIN,DIRECT 1.3 mg/dL (0.0-0.2); BILIRUBIN,TOTAL 2.6 mg/dL (0.2-1.0); CALCIUM, SERUM 8.8 mg/dL (8.5-10.1); CREATININE 0.7 mg/dL (0.6-1.3); TOTAL PROTEIN, SERUM 7.3 g/dL (6.4-8.2)
--- NOTE | 2019-09-28 04:22 | NUR ---
PT IS BACK FROM THE CT SCAN.
[2019-09-28 04:23] LABS: POTASSIUM 1.7 mmol/L (3.5-5.1)
[2019-09-28] MEDS ORDERED: POTASSIUM CL. PREMIX PERIPHER. 50 ML ONE (04:40)
[2019-09-28] MEDS ORDERED: POTASSIUM CHLORIDE 20 MEQ TAB.PRT.SR PO ONE ×2 (04:40→05:00)
[2019-09-28] MEDS ORDERED: POTASSIUM CHLORIDE 20 MEQ POWDER PACKET ONE (04:48)
[2019-09-28] MEDS ORDERED: POTASSIUM CHLORIDE 20 MEQ POWDER PACKET PO ONE (05:00)
[2019-09-28] MEDS ORDERED: POTASSIUM CL. PREMIX PERIPHER. 50 ML IV SCH (05:00)
--- NOTE | 2019-09-28 05:12 | NUR ---
JOINT CREASER AT BEDSIDE FOR XRAY.
--- NOTE | 2019-09-28 05:45 | NUR ---
REPORT GIVEN TO SHWETA GUZMÁN FOR CHARLEY.
[2019-09-28 06:30] VITALS: BP 127/89
--- NOTE | 2019-09-28 06:30 | NUR ---
auristorchestra leader notes Received Pt from SHWETA Melton ER nurse. Pt arrived at the unit with a gurjosue and ACLS protocol. Pt is alert and orientedX2 with episode of confusion. Respiration is normal. No SOB. No S/S of distress noted. VS is stable. Tele monitor showed sinus tachy HR at 101. IV sites at R hand # 20 is clean, intact, patent, flush without resistance and SL. noted multiple bruises on upper and lower extremities. Pt stated " From IV stick." Seizure precaution is maintained. Safety precaution is maintained. Bed at low position, brakes locked, side rails upX3 padded and call light is within reach. Will endorse to morning nurse for [facility].
[2019-09-28 06:47] VITALS: BP 127/89
[2019-09-28] MEDS ORDERED: ACETAMINOPHEN 325 MG TABLET PO PRN (07:00)
[2019-09-28] MEDS ORDERED: ONDANSETRON HCL/PF 4 MG/2 ML VIAL IVP PRN (07:00)
[2019-09-28] MEDS ORDERED: ZOLPIDEM TARTRATE 5 MG TABLET PO PRN (07:00)
[2019-09-28] MEDS ORDERED: MAG HYDROX/AL HYDROX/SIMETH 30 ML UDC PO PRN (07:00)
[2019-09-28] MEDS ORDERED: Z GUARD REMEDY 2 OZ OINT TP PRN (07:00)
[2019-09-28] MEDS ORDERED: MAGNESIUM HYDROXIDE 30 ML UDC PO PRN (07:00)
--- NOTE | 2019-09-28 07:30 | NUR ---
patent drafter closing notes Pt is resting in bed comfortably. Pt is alert and orientedx2 with episode of confusion. Respiration is normal in room air. No SOB. No S/S of distress noted. IV sites at R hand# 20 is clean, intact, patent and SL. VS is stable. Tele monitor showed SR HR at 97 bpm. Kept Pt clean, dry and comfortable. All needs met and attended. Seizure precautions is maintained. Safety precautions is maintained. Bed at low position, brakes locked, side rails upX3 and padded and call light is within reach. Will endorse to morning nurse for [facility]LEY.
--- NOTE | 2019-09-28 07:30 | NUR ---
rouge sifter and miller notes Received Pt in bed resting in bed comfortably. Pt is alert and oriented x3 with episode of confusion. No Signs of distress noted at this time. IV sites at R hand# 20 is clean, intact, patent and SL. Tele monitor SR HR at 97 bpm. Seizure precautions is maintained. Safety precautions is maintained. Bed at low position, brakes locked, side rails upX3 and padded and call light is within reach. Will continue to monitor.
[2019-09-28 07:54] VITALS: BP 135/72
[2019-09-28] MEDS: HYDROCODONE/APAP 5/325MG 1 EACH TABLET PO PRN ×3 (09:39→21:14)
[2019-09-28] MEDS: Potassium Chloride 40 MEQ in IV D5/0.45 NACL 1,000 ML IV PRN ×2 (11:40→22:05)
[2019-09-28 15:03] LABS: CALCIUM, SERUM 8.5 mg/dL (8.5-10.1); CREATININE 0.6 mg/dL (0.6-1.3)
[2019-09-28 15:24] LABS: POTASSIUM 2.2 mmol/L (3.5-5.1)
--- NOTE | 2019-09-28 15:26 | NUR ---
RN NOTES RECEIVED CALL FROM ABBIE [facility] AT 1525 ON CRITICAL VALUE FOR POTASSIUM AT 2.2 Addendum: 09/28/19 at 1855 by ADALID RICKETTS RN MADE AWARE, PATIENT IS ON KCL 40 MEQ IV WITH D5 1/2 NS RUNNING @ 100ML/HR.
[2019-09-28 16:00] VITALS: BP 139/91
--- NOTE | 2019-09-28 18:55 | NUR ---
TELE NOTES PATIENT IN BED RESTING COMFORTABLY IN MODERATE HIGH BACK REST, A/O X3. NO SIGNS OF DISTRESS NOTED THROUGHOUT THE SHIFT. IV FLUIDS ON RIGHT HAND #20 WITH D5 1/2 NS WITH KCL 40 MEQ RUNNING @100 ML/HR. PATENT AND INTACT. SAFETY MEASURES IN PLACE, BED IN LOWEST LOCKED POSITION WITH SIDE RAILS X3. CALL LIGHT WITHIN REACH. WILL ENDORSE TO CLINICAL TRIALS SPECIALIST NURSE FOR CHARLEY.
--- NOTE | 2019-09-28 19:25 | NUR ---
AUTOMOBILE DESIGNER RECEIVE PT A/O X 2, ON CARDIAC MONITORING ST 100 IN TELE MONITOR, NO S/S OF DISTRESS, SAFETY MEASURES IN PLACE. WILL CONT TO MONITOR.
[2019-09-28 20:00] VITALS: BP 129/95
[2019-09-29] VITALS: BP 151/99
[2019-09-29 04:00] VITALS: BP 133/94
--- NOTE | 2019-09-29 06:22 | NUR ---
PROJECT LEADER PT SLEPT WELL, MONITORED ACCORDINGLY, ON GRAPHICS INTERN SINUS TACHY 115'S HR, NEEDS ATTENDED AND ANTICIPATED, KEPT CLEAN, DRY AND COMFORTABLE. AM CARE RENDERED, NO C/O OF PAIN. SAFETY MEASURES AT ALL TIMES. WILL ENDORSE NEXT SHIFT POC. Addendum: 09/29/19 at 0630 by KELLY KING RN NO EPISODES OF SEIZURE NOTED. SEIZURE PRECAUTION AT ALL TIMES
[2019-09-29 06:40] LABS: ALBUMIN 2.4 g/dL (3.4-5.0); BILIRUBIN,TOTAL 1.9 mg/dL (0.2-1.0); CALCIUM, SERUM 7.9 mg/dL (8.5-10.1); CREATININE 0.5 mg/dL (0.6-1.3); TOTAL PROTEIN, SERUM 6.1 g/dL (6.4-8.2)
[2019-09-29 06:43] LABS: THYROID STIMULATING HORMONE 2.277 uIU/mL (0.358-3.74)
[2019-09-29 06:46] LABS: MAGNESIUM 1.2 mg/dL (1.8-2.4); PHOSPHORUS 0.9 mg/dL (2.5-4.9); POTASSIUM 2.3 mmol/L (3.5-5.1)
--- NOTE | 2019-09-29 06:59 | NUR ---
RES COUNSELOR RECEIVE PT IN BED RESTING COMFORTABLY IN MODERATE HIGH BACK REST. A/O X 2, ON CARDIAC MONITORING ST WITH HR OF 100'S IN TELE MONITOR, NO S/S OF DISTRESS NOTED AT THIS TIME, IV FLUIDS ON RIGHT HAND #20 WITH D5 1/2 NS KCL 40 MEQ RUNNING @ 100ML/HR, PATENT AND INTACT, SAFETY MEASURES IN PLACE, BED IN LOWEST LOCK POSITION WITH SIDE RAILS UP X3, ON SEIZURE PRECAUTION, CALL LIGHT WITHIN EASY REACH, WILL CONT TO MONITOR.
[2019-09-29] MEDS ORDERED: POTASSIUM PHOSPHATE MM 15 MMOL in IV NS 0.9% 250 ML IV SCH (08:00)
[2019-09-29] MEDS: POTASSIUM CL. PREMIX PERIPHER. 50 ML IV SCH ×6 (08:21→20:27)
[2019-09-29] MEDS: POTASSIUM PHOSPHATE MM 7.5 MMOL in IV NS 0.9% 100 ML IV SCH ×3 (08:30→21:00)
[2019-09-29 09:00] VITALS: BP 155/90
[2019-09-29] MEDS: K PHOS NEUTRAL 250 MG TABLET PO SCH ×4 (09:15→20:59)
[2019-09-29 11:06] LABS: APPEARANCE,URINE CLEAR (CLEAR); BILIRUBIN,URINE MODERATE (NEGATIVE); BLOOD, URINE TRACE-INTA Ery/uL (NEGATIVE); COLOR,URINE DARK YELLO (YELLOW); KETONES,URINE 15 (NEGATIVE); LEUKOCYTE ESTERASE ,URINE NEGATIVE (NEGATIVE); NITRITE, URINE NEGATIVE (NEGATIVE); PROTEIN,URINE TRACE mg/dl (NEGATIVE); UGLUCOSE 100 MG/DL mg/dL (NEGATIVE); UROBILINOGEN,URINE >=8.0 EU/dL (0.2)
[2019-09-29 11:11] LABS: OSMOLALITY,URINE 406 mOS/kg (340-1090)
[2019-09-29 11:13] LABS: CHLORIDE,URINE RANDOM 67 mmol/L (55-125); POTASSIUM RNDM,URINE 19 mmol/L (25-125); URINE SODIUM, RANDOM 59 mmol/l (40-220)
[2019-09-29] MEDS: Magnesium 1GM/D5W 100ML PREMIX 100 ML IV SCH ×4 (11:22→15:17)
[2019-09-29 11:28] LABS: BACTERIA,URINE Rare /HPF (None Seen); SQUAMOUS EPITHELIAL CELL,UR Few /HPF (None Seen); WBC,URINE NONE SEEN /HPF (0-3)
--- NOTE | 2019-09-29 12:00 | NUR ---
RN NOTES ASKED THE PATIENT IF I CAN INSERT ANOTHER IV ACCESS BUT PATIENT REFUSED, EXPLAINED THE RISKS AND BENEFITS BUT STILL PATIENT STILL REFUSED. MADE AWARE.
[2019-09-29 15:41] LABS: BASOPHILS % (AUTO) 0.3 % (0.0-2.0); HEMATOCRIT 32 % (33-45); HEMOGLOBIN 10.7 g/dL (11.5-14.8); LYMPHOCYTES # (AUTO) 0.7 /CMM (0.8-4.8); LYMPHOCYTES % (AUTO) 5.5 % (20.0-44.0); MEAN CORPUSCULAR HGB CONC 33 g/dl (31.0-36.0); MEAN CORPUSCULAR VOLUME 100 fL (82-100); MONOCYTES # (AUTO) 1.2 /CMM (0.1-1.30); MONOCYTES % (AUTO) 9.5 % (2.0-12.0); NEUTROPHILS # (AUTO) 10.7 /CMM (1.8-8.9); NEUTROPHILS % (AUTO) 84.7 % (43.0-81.0); PLATELET COUNT (AUTO) 123 /CMM (150-450); RED BLOOD CELL COUNT(AUTO) 3.19 MIL/uL (4.0-5.2); WHITE BLOOD COUNT (AUTO) 12.6 K/uL (4.3-11.0)
[2019-09-29 15:56] LABS: CALCIUM, SERUM 7.9 mg/dL (8.5-10.1); CREATININE 0.5 mg/dL (0.6-1.3); MAGNESIUM 2.3 mg/dL (1.8-2.4); PHOSPHORUS 1.4 mg/dL (2.5-4.9)
[2019-09-29 16:00] VITALS: BP 138/94
[2019-09-29 16:01] LABS: POTASSIUM 2.2 mmol/L (3.5-5.1)
--- NOTE | 2019-09-29 16:30 | NUR ---
RN NOTES RECEIVED A CRITICAL RESULTS: POTASSIUM LEVEL OF 2.2, INFORMED DUANE WITH ORDER OF 40 MEQ OF POTASSIUM AND BMP @ 20:00, ORDERS MADE AND CARRIED OUT. ASKED THE PATIENT AGAIN IF OKAY TO INSERT ANOTHER IV LINE BUT PATIENT STILL REFUSED EVEN AFTER EXPLAINING THE RISKS AND BENEFITS. WILL CONTINUE TO MONITOR.
--- NOTE | 2019-09-29 18:32 | NUR ---
PUBLIC HEALTH SANITARIAN PT IN BED RESTING COMFORTABLY IN MODERATE HIGH BACK REST. A/O X 2, ON CARDIAC MONITORING ST WITH HR OF 100'S IN TELE MONITOR, NO S/S OF DISTRESS NOTED THROUGHOUT THE SHIFT, IV FLUIDS ON RIGHT HAND #20 WITH D5 1/2 NS KCL 40 MEQ RUNNING @ 100ML/HR, PATENT AND INTACT, SAFETY MEASURES IN PLACE, BED IN LOWEST LOCK POSITION WITH SIDE RAILS UP X3, ON SEIZURE PRECAUTION, CALL LIGHT WITHIN EASY REACH, WILL ENDORSE TO CITY BAILIFF NURSE FOR CHARLEY.
--- NOTE | 2019-09-29 19:28 | NUR ---
HISTOLOGY TECHNICIAN RECEIVE PT A/O X 2 PERIOD OF FORGETFULNESS, ON CARDIAC MONITORING ST 103 IN TELE MONITOR, NO S/S OF DISTRESS, SAFETY MEASURES IN PLACE. WILL CONT TO MONITOR.
[2019-09-29 19:45] VITALS: BP 128/86
[2019-09-29 20:00] VITALS: BP 150/91
[2019-09-29 20:54] LABS: CALCIUM, SERUM 7.8 mg/dL (8.5-10.1); CREATININE 0.5 mg/dL (0.6-1.3)
[2019-09-29] MEDS: Potassium Chloride 40 MEQ in IV D5/0.45 NACL 1,000 ML IV PRN (20:59)
[2019-09-29] MEDS: HYDROCODONE/APAP 5/325MG 1 EACH TABLET PO PRN (21:00)
--- NOTE | 2019-09-29 21:05 | NUR ---
PAGED HOSPITALIST FOR RECENT CRITICAL LAB POTASSIUM AWAITNG CALL BACK
[2019-09-29 21:08] LABS: POTASSIUM 2.6 mmol/L (3.5-5.1)
--- NOTE | 2019-09-29 21:51 | NUR ---
Re-paged again hospitalist awaiting call back
--- NOTE | 2019-09-29 22:11 | NUR ---
SPOKE TO ADOLFO LUX, HOSPITALIST FOR TONIGHT REPORTED CRITICAL LAB POTASSIUM 2.6 PT STILL ONGOING POTASSIUM PHOSPATE. PER ADOLFO CONT TO MONITOR AND CONT LABS AT AM. REPORTED ALSO PT NOTED WITH AGITATION KEPT ON SHOUTING PER PT SHE IS ANXIOUS PER ADOLFO ORDERED ATIVAN 0.5 MG IVP ONE TIME DOSE ONLY FOR AGITATION READ BACK AND VERIFIED ORDERS NOTED AND CARRIED OUT.
[2019-09-29] MEDS ORDERED: LORAZEPAM INJ 2 MG/ML VIAL IV ONE (22:30)
--- NOTE | 2019-09-29 23:30 | NUR ---
PT CALM AT THIS TIME NO S/S OF DISTRESS NOTED
[2019-09-30] VITALS: BP 129/78
[2019-09-30 00:12] VITALS: BP 129/72
[2019-09-30] MEDS: POTASSIUM PHOSPHATE MM 7.5 MMOL in IV NS 0.9% 100 ML IV SCH (00:21)
[2019-09-30 04:00] VITALS: BP 137/87
--- NOTE | 2019-09-30 06:28 | NUR ---
EMPLOYEE RELATIONS REPRESENTATIVE NO SIGNIFICANT CHANGES AT THIS TIME, PT SLEPT WELL, NURSING CARE RENDERED, NO EPISODES OF SEIZURE NOTED. SEIZURE PRECAUTION AT ALL TIMES. ON DIETETICS DIRECTOR SINUS TACHY 120'S HR, NEEDS ATTENDED AND ANTICIPATED, KEPT CLEAN, DRY AND COMFORTABLE.REPOSITION EVERY 2 HOURS. SAFETY MEASURES AT ALL TIMES. WILL ENDORSE NEXT SHIFT POC. Addendum: 09/30/19 at 0716 by KELLY KING RN PT HR AT 110
--- NOTE | 2019-09-30 07:25 | NUR ---
IT AUDITOR OPENING NOTES RECEIVED PT IN BED, AWAKE, A/OX2. PT TOLERATING RA WITH NO ACUTE RESPIRATORY DISTRESS NOTED. PT DENIES ANY PAIN OR DISCOMFORT AT THE TIME. PT DENIES ANY CONCERNS OR QUESTIONS WELL. ON TELEMONITONING ST 115, PT DENIES ANY CHEST PAIN. IVF D5 1/2 NS WITH KCL 40MEQS, INTACT AND FLUID INFUSING WELL, NO INFILTRATION NOTED. PT KEPT COMFORTABLE IN BED. CALL LIGHT KEPT WITHIN REACH. PT'S BED IN LOWEST, LOCED POSITION WITH SRX3. WILL CONTINUE PLAN OF CARE.
[2019-09-30 08:00] VITALS: BP 149/93
[2019-09-30] MEDS: K PHOS NEUTRAL 250 MG TABLET PO SCH ×4 (08:32→20:23)
[2019-09-30 09:38] LABS: ALBUMIN 2.3 g/dL (3.4-5.0); BILIRUBIN,TOTAL 1.8 mg/dL (0.2-1.0); CALCIUM, SERUM 7.2 mg/dL (8.5-10.1); CREATININE 0.5 mg/dL (0.6-1.3); MAGNESIUM 1.6 mg/dL (1.8-2.4); PHOSPHORUS 3.7 mg/dL (2.5-4.9); TOTAL PROTEIN, SERUM 6.2 g/dL (6.4-8.2)
[2019-09-30 09:50] LABS: POTASSIUM 2.7 mmol/L (3.5-5.1)
--- NOTE | 2019-09-30 09:55 | NUR ---
DOCUMENTATION COORDINATOR NOTES RECEIVED CALL FROM LAB FOR POTASSIUM 2.7 CL, HOSPITALIST/DT MADE AWARE. AWAITING FOR RESPONSE. PT MADE AWARE WELL.
[2019-09-30] MEDS: Magnesium 1GM/D5W 100ML PREMIX 100 ML IV SCH ×2 (10:18→11:26)
[2019-09-30] MEDS: POTASSIUM CL. PREMIX PERIPHER. 50 ML IV SCH ×5 (10:18→14:45)
[2019-09-30] MEDS: MULTIVITAMINS,THERAGRAN 1 UDTAB TABLET PO SCH (10:19)
[2019-09-30] MEDS: CEFTRIAXONE 1 G in IV D5W 50 ML IV SCH (11:22)
[2019-09-30] MEDS: Potassium Chloride 40 MEQ in IV D5/0.45 NACL 1,000 ML IV PRN (11:26)
[2019-09-30] MEDS: HYDROCODONE/APAP 5/325MG 1 EACH TABLET PO PRN (11:32)
--- NOTE | 2019-09-30 12:35 | NUR ---
SKILLED LABOR NOTES ENDORSED TO [place] FOR CHARLEY.
--- NOTE | 2019-09-30 12:55 | NUR ---
CONSULTING PRACTICE DIRECTOR TIM RESUMED PATIENT CARE. PATIENT RESTING COMFORTABLY IN BED. IN NO APPARENT DISTRESS.
[2019-09-30 16:00] VITALS: BP 139/95
--- NOTE | 2019-09-30 19:22 | NUR ---
TRACTOR TRAILER MOVING VAN DRIVER NOTES PATIENT RESTING COMFORTABLY IN BED. PATIENT ALERT AND ORIENTED X 1-2. NO S/S OF RESPIRATORY DISTRESS. DENIES ANY C/O PAIN NOR DISCOMFORT AT THIS TIME. LEFT WRIST # 20 GAUGE INTACT AND PATENT INFUSING D5 1/2 NS WITH POTASSIUM 40 MEQ MAGED WELL. BED IN LOWEST POSITION, LOCKED. SEIZURE PRECAUTIONS OBSERVED. CALL LIGHT WITHIN REACH. IN NO APPARENT DISTRESS.
--- NOTE | 2019-09-30 19:29 | NUR ---
TELE/RN OPENING NOTES: RECEIVED PATIENT AWAKE IN BED, A/OX2. VERBALLY RESPONSIVE AND TOLERATING RA WITH NO ACUTE RESPIRATORY DISTRESS NOTED. DENIES ANY PAIN OR DISCOMFORT AT THE TIME. PT DENIES ANY CONCERNS OR QUESTIONS WELL. ON TELE MONITORING WITH READING OF ST 110, PT DENIES ANY CHEST PAIN. IVF D5 1/2 NS WITH KCL 40MEQS, INTACT AND FLUID INFUSING WELL, NO INFILTRATION NOTED. PT KEPT COMFORTABLE IN BED. CALL LIGHT KEPT WITHIN REACH. PT'S BED IN LOWEST, LOCKED POSITION WITH SRX3. WILL CONTINUE MONITORING PT ACCORDINGLY.
--- NOTE | 2019-09-30 19:49 | NUR ---
TELE/RN NOTES: PATIENT HAS BUE AND BLE BRUISES. REFUSING SKIN ASSESSMENT AND PICTURES. WILL CONTINUE TO MONITOR PATIENT.
[2019-09-30 20:00] VITALS: BP 129/100
[2019-09-30 23:30] LABS: BASOPHILS % (AUTO) 0.2 % (0.0-2.0); EOSINOPHILS % (AUTO) 0.2 % (0.0-6.0); HEMATOCRIT 33 % (33-45); LYMPHOCYTES # (AUTO) 0.8 /CMM (0.8-4.8); LYMPHOCYTES % (AUTO) 6.4 % (20.0-44.0); MEAN CORPUSCULAR HGB CONC 33 g/dl (31.0-36.0); MEAN CORPUSCULAR VOLUME 102 fL (82-100); MONOCYTES # (AUTO) 1.2 /CMM (0.1-1.30); MONOCYTES % (AUTO) 9.8 % (2.0-12.0); NEUTROPHILS # (AUTO) 10.5 /CMM (1.8-8.9); NEUTROPHILS % (AUTO) 83.4 % (43.0-81.0); PLATELET COUNT (AUTO) 118 /CMM (150-450); RED BLOOD CELL COUNT(AUTO) 3.23 MIL/uL (4.0-5.2); WHITE BLOOD COUNT (AUTO) 12.6 K/uL (4.3-11.0)
[2019-10-01] VITALS (8 sets, daily range): BP systolic 117–163; BP diastolic 80–110
[2019-10-01] MEDS: LORAZEPAM 1 MG TABLET PO PRN (01:05)
--- NOTE | 2019-10-01 01:05 | NUR ---
TELE/RN NOTES: ADMINISTERED ATIVAN 1MG PO. PATIENT IS AGITATED AND HAS INCREASED BP. WILL COTNINUE TO MONITOR
--- NOTE | 2019-10-01 03:08 | NUR ---
TELE/RN NOTES: PATIENT IN STABLE CONDITION. NO SIGNIFICANT CHANGES IN CONDITION. ENDORSED TO SUSAN FOR CHARLEY.
--- NOTE | 2019-10-01 03:10 | NUR ---
SERVICE STATION CASHIER OPENING NOTE RECEIVE REPORT FROM SARAH ROCK. PATIENT IN BED. A/OX1-2, PATIENT IS CONFUSED. TOLERATING ROOM AIR. RESPIRATIONS ARE EVEN AND UNLABORED. NO S/S SOB NOTED. DENIES PAIN AT THIS TIME. EXTERNAL TELE MONITOR READS ST 118. IN NO APPARENT DISTRESS. IV ACCESS IN LEFT WRIST RUNNING D1/2 NS WITH KCL RUNNING AT 60ML/HR. BED IS LOW AND LOCKED, HOB ELEVATED IN SEMI FOWLERS, SIDE RIALS UP X3, BED ALARM ON. CALL LIGHT WITHIN REACH. WILL CONTINUE TO MONITOR.
--- NOTE | 2019-10-01 06:30 | NUR ---
STATIONS SUPERINTENDENT CLOSING NOTE PATIENT IN BED. A/OX1-2, PATIENT IS CONFUSED. TOLERATING ROOM AIR. RESPIRATIONS ARE EVEN AND UNLABORED. NO SOB NOTED. NO C/O PAIN. EXTERNAL TELE MONITOR READS ST 118. NO DISTRES NOTED . IV ACCESS IN LEFT WRIST RUNNING D1/2 NS WITH KCL RUNNING AT 60ML/HR. BED IS LOW AND LOCKED, HOB ELEVATED IN SEMI FOWLERS, SIDE RIALS UP X3, BED ALARM ON. CALL LIGHT WITHIN REACH. WILL ENDORSE TO NEXT SHIFT
[2019-10-01 06:46] LABS: CREATININE 0.4 mg/dL (0.6-1.3); MAGNESIUM 1.4 mg/dL (1.8-2.4)
--- NOTE | 2019-10-01 07:30 | NUR ---
tele portable irrigation operator: notes received pt in bed awake, but appears altered, confused and disoriented to time, place, and situation. iv removed by noc nurse due to infiltration. left hand swelling. elevated with pillow. reality orientation provided prn. pt has multiple tattoos on salvatore upper extremity with discoloration. tele remains [id number]=[phone]. will continue to monitor. Addendum: 10/01/19 at 1133 by RASHARD RAMESH CAR STARTER noted with multiple bruise to salvatore thighs and legs, left knee and left forehead scab.
--- NOTE | 2019-10-01 08:00 | NUR ---
tele salesperson fashion accessories: md visit betty (acnp) here and made aware re: abnormal labs (k+=3.0, magnesium=1.4) and pt has no iv at this time, attempted x1 but unsuccessful. tele [phone]. also informed acnp, pt is altered. acnp will see pt today and for d'c planning as stated.
[2019-10-01] MEDS: MULTIVITAMINS,THERAGRAN 1 UDTAB TABLET PO SCH (08:43)
[2019-10-01] MEDS: K PHOS NEUTRAL 250 MG TABLET PO SCH ×4 (08:44→20:39)
--- NOTE | 2019-10-01 09:30 | NUR ---
m/s deputy grand jury: notes hot plate plywood press laborer here to redraw cbc due to not sufficient as stated. pt initial refused per tech, but able to talk to pt and agreed for draw after teaching/education provided.
--- NOTE | 2019-10-01 10:00 | NUR ---
tele asset accountant: notes pit laborer unable to redraw and will come back later as stated.
[2019-10-01] MEDS ORDERED: POTASSIUM CL. PREMIX PERIPHER. 50 ML IV SCH (10:30)
[2019-10-01] MEDS: Magnesium 1GM/D5W 100ML PREMIX 100 ML IV SCH ×4 (10:39→13:42)
--- NOTE | 2019-10-01 12:00 | NUR ---
tele home teaching grades 7 and 8 teacher: notes pt remains confused and disoriented to time, place, and situation. pt disrobing and climbing out of bed when rounds made. reality orientation provided prn. repositioned and kept comfortable. bed alarm remains on with sr up x3. call light within reach. will continue to monitor.
[2019-10-01] MEDS: CEFTRIAXONE 1 G in IV D5W 50 ML IV SCH (14:42)
--- NOTE | 2019-10-01 14:50 | NUR ---
tele healthcare recruiter: notes gregg (laborer car barn) came back for cbc re-draw at this time.
[2019-10-01] MEDS: POTASSIUM CL. PREMIX PERIPHER. 50 ML IV SCH ×4 (15:16→18:17)
--- NOTE | 2019-10-01 15:28 | NUR ---
tele liquor grinder mill operator: notes gregg (fish farm laborer) unsuccessful redraw blood and will send someone for redraw
--- NOTE | 2019-10-01 16:09 | NUR ---
tele rose grader: notes jethro (labor economics teacher) also unable to redraw cbc and will send someone. betty (acnp) notified and made aware with order to cancel cbc today and do cbc in am. orders read back and carried out. lab called and spoke to alfredo to cancel cbc today.
--- NOTE | 2019-10-01 16:50 | NUR ---
tele lamp inspector: notes picc line inserted midline to left upper arm, gauge#20x1 attempt, neftaly. well.
--- NOTE | 2019-10-01 18:30 | NUR ---
tele machine stemmer: notes last potassium chloride still infusing. needs attended. pt remains confused and disoriented. reality orientation provided prn. bed alarm on. sr up x 3. call light within reach. will continue to monitor.
--- NOTE | 2019-10-01 19:15 | NUR ---
tele gm mobile: notes bedside report given to nava sorto) for continuity of care.
--- NOTE | 2019-10-01 19:20 | NUR ---
TELE/RN OPENING NOTES: RECEIVED PATIENT AWAKE IN BED, A/OX1. ALTERED MENTAL STATUS WITH CONFUSION. VERBALLY RESPONSIVE AND TOLERATING RA WITH NO ACUTE RESPIRATORY DISTRESS NOTED. DENIES ANY PAIN OR DISCOMFORT AT THE TIME. ON TELE MONITORING WITH READING OF ST 114, PT DENIES ANY CHEST PAIN. IVF D5 1/2 NS WITH KCL 40MEQS ON THE RIGHT WRIST #20G, INTACT AND FLUID INFUSING WELL, NO INFILTRATION NOTED. PT KEPT COMFORTABLE IN BED. CALL LIGHT KEPT WITHIN REACH. PT'S BED IN LOWEST, LOCKED POSITION WITH SRX3. SEIZURE PRECAUTIONS ON. WILL CONTINUE MONITORING PT ACCORDINGLY.
[2019-10-01] MEDS: Potassium Chloride 40 MEQ in IV D5/0.45 NACL 1,000 ML IV PRN (20:39)
[2019-10-01] MEDS: HYDROCODONE/APAP 5/325MG 1 EACH TABLET PO PRN (21:40)
--- NOTE | 2019-10-01 21:40 | NUR ---
TELE/RN NOTES: PT. COMPLAINING OF PAIN LEVEL OF 6. GENERALIZED. REQUESTED PAIN MEDS. GIVEN NORCO 5MG PO. TOLERATED WELL. VS WNL. WILL CONTINUE TO MONITOR.
[2019-10-02] VITALS: BP 167/94
[2019-10-02] MEDS: LORAZEPAM 1 MG TABLET PO PRN (00:28)
--- NOTE | 2019-10-02 00:30 | NUR ---
TELE/RN NOTES: PATIENT IS AGITATED, CONSTANTLY TRYING TO GET OUT OF BED. CONFUSED AND DEMANDING TO BE TRANSFERRED TO THE OTHER BED. PER PT "MY BABY IS GOING TO SLEEP IN THIS BED, I DEMAND TO GO TO THE OTHER BED. THE COYOTES WILL GET ME." GIVEN ATIVAN 1MG PO. TOLERATED WELL. ORIENTED BACK TO REALITY. VS STABLE. SAFETY MEASURES KEPT IN PLACE. BED IS IN LOW, LOCKED POSITION WITH SR UPX3. WILL CONTINUE MONITORING.
--- NOTE | 2019-10-02 00:58 | NUR ---
TELE/RN NOTES: PATIENT PULLED OUT HER MIDLINE ON THE JAMES. PER PT "HOW COULD HAVE I DONE THAT? AM I A DOCTOR WITH SUPPLIES TO MOVE IT? MY IV IS ON MY RIGHT HAND. YOU ALWAYS BLAME ME". ORIENTED PATIENT BACK TO REALITY, PATIENT REMAINS A/OX1, UNCOOPERATIVE AND CONFUSED. WILL CONTINUE MONITORING.
[2019-10-02 04:06] VITALS: BP 160/97
[2019-10-02 06:27] LABS: BASOPHILS % (AUTO) 0.3 % (0.0-2.0); EOSINOPHILS % (AUTO) 0.4 % (0.0-6.0); HEMATOCRIT 36 % (33-45); HEMOGLOBIN 11.6 g/dL (11.5-14.8); LYMPHOCYTES # (AUTO) 1.2 /CMM (0.8-4.8); LYMPHOCYTES % (AUTO) 7.9 % (20.0-44.0); MEAN CORPUSCULAR HGB CONC 33 g/dl (31.0-36.0); MEAN CORPUSCULAR VOLUME 103 fL (82-100); MONOCYTES % (AUTO) 13.6 % (2.0-12.0); NEUTROPHILS # (AUTO) 11.4 /CMM (1.8-8.9); NEUTROPHILS % (AUTO) 77.8 % (43.0-81.0); PLATELET COUNT (AUTO) 96 /CMM (150-450); RED BLOOD CELL COUNT(AUTO) 3.45 MIL/uL (4.0-5.2); WHITE BLOOD COUNT (AUTO) 14.6 K/uL (4.3-11.0)
[2019-10-02 06:41] LABS: CALCIUM, SERUM 7.6 mg/dL (8.5-10.1); CREATININE 0.4 mg/dL (0.6-1.3); MAGNESIUM 1.7 mg/dL (1.8-2.4); PHOSPHORUS 2.8 mg/dL (2.5-4.9); POTASSIUM 3.5 mmol/L (3.5-5.1)
--- NOTE | 2019-10-02 06:56 | NUR ---
TELE/RN CLOSING NOTES: PATIENT IN BED. A/OX1-2, PATIENT IS SLEEPING IN BED. REMAINS CONFUSED. NO SIGNIFICANT CHANGES IN CONDITION. TOLERATING ROOM AIR. RESPIRATIONS ARE EVEN AND UNLABORED. NO SOB NOTED. NO C/O PAIN. EXTERNAL TELE MONITOR READS ST 110. NO DISTRESS NOTED . IV ACCESS IN RIGHT WRIST RUNNING D1/2 NS WITH KCL RUNNING AT 100ML/HR. IV SITE IS WRAPPED WITH KERLIX TO PREVENT PT. FROM PULLING OUT LINE. IV MIDLINE INSERTION WILL BE DONE LATER. SAFETY MEASURES KEPT IN PLACE. BED IS LOW AND LOCKED, HOB ELEVATED IN SEMI FOWLERS, SIDE RIALS UP X3, BED ALARM ON. CALL LIGHT WITHIN REACH. WILL ENDORSE TO NEXT SHIFT
[2019-10-02 08:00] VITALS: BP 160/89
[2019-10-02] MEDS: MULTIVITAMINS,THERAGRAN 1 UDTAB TABLET PO SCH (08:20)
[2019-10-02] MEDS: K PHOS NEUTRAL 250 MG TABLET PO SCH ×5 (08:20→20:27)
[2019-10-02] MEDS: CEFTRIAXONE 1 G in IV D5W 50 ML IV SCH (09:57)
[2019-10-02] MEDS ORDERED: Magnesium 1GM/D5W 100ML PREMIX 100 ML IV SCH (11:26)
[2019-10-02] MEDS: Magnesium 1GM/D5W 100ML PREMIX 100 ML IV SCH ×2 (11:37→12:47)
[2019-10-02] MEDS: HYDROCODONE/APAP 5/325MG 1 EACH TABLET PO PRN ×2 (12:06→18:06)
[2019-10-02] MEDS: Potassium Chloride 40 MEQ in IV D5/0.45 NACL 1,000 ML IV PRN (12:22)
[2019-10-02 16:00] VITALS: BP 134/81
[2019-10-02] MEDS: AMPICILLIN 500 MG in IV NS 0.9% 50 ML IV SCH ×2 (17:40→23:59)
--- NOTE | 2019-10-02 18:21 | NUR ---
PATIENT IN BED. A/OX1 REMAINS CONFUSED.ABLE TO MAKE NEEDS KNOWN.RESPIRATIONS ARE EVEN AND UNLABORED, ON ROOM AIR. NO SOB NOTED.PRN MEDS GIVEN PER PATIENT REQUEST FOR GENERALIZED PAIN. TELE MONITOR READS ST 108. NO DISTRESS NOTED . IV ACCESS IN RIGHT WRIST RUNNING D1/2 NS WITH KCL AT 100ML/HR. IV SITE IS WRAPPED WITH KERLIX TO PREVENT PT. FROM PULLING OUT LINE. SAFETY MEASURES KEPT IN PLACE.NO EPISODES OF SEIZURES NOTED.BED IS IN LOW POSITION AND LOCKED, HOB ELEVATED IN SEMI FOWLERS, SIDE RIALS UP X3, BED ALARM ON. CALL LIGHT WITHIN REACH.
[2019-10-02 19:30] VITALS: BP 151/96
--- NOTE | 2019-10-02 19:34 | NUR ---
OIL SALES AND SERVICE REP NOTES PATIENT IN BED, ASLEEP, ALERT AND ORIENTED X 1, CONFUSED. BREATHING EVEN AND UNLABORED ON ROOM AIR. SHOWS NO SIGNS OF ACUTE RESPIRATORY DISTRESS, NO ACUTE PAIN. ON TELE MONITOR ST 100HR. IV ON R WRIST 20G RUNNING. RUNNING D1/2 NS WITH KCL 40MEQ AT 100ML/HR. SHOWS NO SIGNS OF INFILTRATION, NO REDNESS. ITS CLEAN DRY AND INTACT. SAFETY PRECAUTIONS IN PLACE. BED IN LOWEST POSITION, LOCKED, AND CALL LIGHT KEPT WITHIN REACH. WILL CONTINUE TO MONITOR.
[2019-10-02 20:16] VITALS: BP 151/96
--- NOTE | 2019-10-02 20:27 | NUR ---
DATA ENTRY ASSOCIATE NOTES PT REFUSED TO TAKE K PHOS NEUTRAL. EDUCATED PT ON REASON FOR MEDICATION. PT INSISTED AND CONTINUED TO REFUSED. WILL CONTINUE TO MONITOR.
[2019-10-03] VITALS (8 sets, daily range): BP systolic 140–162; BP diastolic 75–110
[2019-10-03] MEDS: LORAZEPAM 1 MG TABLET PO PRN ×4 (01:23→22:16)
[2019-10-03] MEDS: Potassium Chloride 40 MEQ in IV D5/0.45 NACL 1,000 ML IV PRN (01:23)
[2019-10-03] MEDS: HYDROCODONE/APAP 5/325MG 1 EACH TABLET PO PRN ×5 (01:27→22:17)
[2019-10-03] MEDS: AMPICILLIN 500 MG in IV NS 0.9% 50 ML IV SCH ×4 (05:59→23:00)
[2019-10-03 06:37] LABS: BASOPHILS % (AUTO) 0.2 % (0.0-2.0); EOSINOPHILS % (AUTO) 0.7 % (0.0-6.0); HEMATOCRIT 30 % (33-45); HEMOGLOBIN 10.1 g/dL (11.5-14.8); LYMPHOCYTES # (AUTO) 0.6 /CMM (0.8-4.8); LYMPHOCYTES % (AUTO) 6.7 % (20.0-44.0); MEAN CORPUSCULAR HGB CONC 34 g/dl (31.0-36.0); MEAN CORPUSCULAR VOLUME 103 fL (82-100); MONOCYTES % (AUTO) 10.5 % (2.0-12.0); NEUTROPHILS # (AUTO) 7.8 /CMM (1.8-8.9); NEUTROPHILS % (AUTO) 81.9 % (43.0-81.0); PLATELET COUNT (AUTO) 74 /CMM (150-450); RED BLOOD CELL COUNT(AUTO) 2.91 MIL/uL (4.0-5.2); WHITE BLOOD COUNT (AUTO) 9.5 K/uL (4.3-11.0)
--- NOTE | 2019-10-03 06:39 | NUR ---
STAMPING DIE MAKER NOTES PATIENT IN BED, WITH INTERMITTENT SLEEP, ALERT AND ORIENTED X 1, CONFUSED. BREATHING EVEN AND UNLABORED ON ROOM AIR. SHOWS NO SIGNS OF ACUTE RESPIRATORY DISTRESS, NO ACUTE PAIN. ON TELE MONITOR SR 99HR. IV ON R WRIST 20G RUNNING D1/2 NS WITH KCL 40MEQ AT 100ML/HR. SHOWS NO SIGNS OF INFILTRATION, NO REDNESS. ITS CLEAN DRY AND INTACT. ALL DUE MEDICATIONS GIVEN. SAFETY PRECAUTIONS IN PLACE. BED IN LOWEST POSITION, LOCKED, AND CALL LIGHT KEPT WITHIN REACH. WILL ENDORSE TO ONCOMING NURSE.
[2019-10-03 06:52] LABS: CALCIUM, SERUM 7.7 mg/dL (8.5-10.1); CREATININE 0.4 mg/dL (0.6-1.3); MAGNESIUM 1.6 mg/dL (1.8-2.4); POTASSIUM 5.4 mmol/L (3.5-5.1)
[2019-10-03] MEDS ORDERED: IV NS 0.9% 1,000 ML BAG IV PRN (08:00)
[2019-10-03 08:26] LABS: EOSINOPHILS % (MANUAL) 1 % (0-4); LYMPHOCYTES % (MANUAL) 9 % (16-48); MONOCYTES % (MANUAL) 11 % (0-11.0); NEUTROPHILS % (MANUAL) 79 (42-76)
[2019-10-03] MEDS: K PHOS NEUTRAL 250 MG TABLET PO SCH ×2 (08:40→13:30)
[2019-10-03] MEDS: MULTIVITAMINS,THERAGRAN 1 UDTAB TABLET PO SCH (08:40)
[2019-10-03] MEDS: Magnesium 1GM/D5W 100ML PREMIX 100 ML IV SCH ×2 (08:59→10:10)
[2019-10-03] MEDS: IV NS 0.9% 1,000 ML IV PRN ×2 (09:39→22:37)
--- NOTE | 2019-10-03 10:24 | NUR ---
MS RN- OPENING NOTES Received patient in bed awake, conscious, cooperative and confuse. No signs of distress, unlabored breathing at room air, with IVF D5 1/2 NS with KCL 40 meq at 100 ml/hr.
--- NOTE | 2019-10-03 11:38 | NUR ---
MS RN- REFUSED MEDICATION Patient refused to take Neutra Phos K 2 tabs 500mg; and Theragran Multivitamins 1 UDTAB.
--- NOTE | 2019-10-03 13:30 | NUR ---
RN NOTES ADMINISTERED ATIVAN 1 MG PO PRN FOR SEIZURE PRECAUTION P-109, BP 147/85 ,R-20, FOR SHAKINESS, CONTINUED MONITORING.
--- NOTE | 2019-10-03 15:53 | NUR ---
rn notes medication were administered for pain, and anxiety effective, patient resting in the bed.
--- NOTE | 2019-10-03 18:40 | NUR ---
MS RN- CLOSING NOTES Endorsed patient to cleaner operator nurse in bed, awake, cooperative and confused. IVF NS 1000ml at 100ml/hr at PATRICK infusing well, no infiltration and redness noted, skin is intact, no signs of respiratory distress, breathing at room air, total care given, medication due is given.
--- NOTE | 2019-10-03 19:37 | NUR ---
RENEWABLE ENERGY CONSULTANT OPENING NOTES PATIENT RESTING IN BED COMFORTABLY; A/OX1-2; PATIENT CONFUSED; BREATHING EVEN AND UNLABORED; PATIENT TOLERATING ROOM AIR WELL, NO SOB OR ACUTE RESPIRATORY DISTRESS NOTED; TELE MONITOR ATTACHED, READS STACHY 119 HR; PATRICK MIDLINE INTACT AND PATENT; FLUSHING WELL; PATIENT TOLERATING NS @ 100ML/HR WELL; PATIENT DENIES PAIN; PATIENT REQUESTING ATIVAN AND NORCO ORDERED; WILL ADMINISTER ONCE DUE; SAFETY AND SEIZURE PRECAUTIONS IN PLACE; BED LOCKED IN LOW POSITION; BILATERAL SIDE RAILS X2; CALL LIGHT WITHIN REACH; WILL CONTINUE TO MONITOR
--- NOTE | 2019-10-03 22:17 | NUR ---
CLINICAL MICROBIOLOGIST NOTES PATIENT VERBALIZED 7/10 GENERALIZED PAIN; REQUESTED NORCO AND ATIVAN TO HELP HER SLEEP; VS STABLE; NORCO AND ATIVAN ADMINISTERED PER MD ORDER; WILL CONTINUE TO MONITOR
[2019-10-04] VITALS: BP 165/93
[2019-10-04] MEDS: HYDROCODONE/APAP 5/325MG 1 EACH TABLET PO PRN ×2 (03:03→08:05)
--- NOTE | 2019-10-04 03:03 | NUR ---
VETERANS' COORDINATOR NOTES PATIENT AWAKE AND VERBALIZED SHE WOKE UP D/T GENERALIZED PAIN; PATIENT RATED PAIN 7/10; NORCO ADMINISTERED PER MD ORDER; WILL CONTINUE TO MONITOR
[2019-10-04 04:00] VITALS: BP_SYST 140; BP_SYST 146; BP_DIAS 75; BP_DIAS 98
[2019-10-04] MEDS: AMPICILLIN 500 MG in IV NS 0.9% 50 ML IV SCH ×2 (05:00→12:43)
--- NOTE | 2019-10-04 06:17 | NUR ---
RINK RAT CLOSING NOTES PATIENT AWAKE, A/O X2-3, PATIENT RESTING IN BED COMFORTABLY; BREATHING EVEN AND UNLABORED; NO SOB OR ACUTE RESPIRATORY DISTRESS NOTED; PATIENT TOLERATING ROOM AIR WELL; PATIENT REQUESTED TO WATCH TV; TELE MONITOR ATTACHED AND READS STACHY WITH 111-124HR; PATRICK MIDLINE INTACT AND PATENT; FLUSHING WELL; NO S/S OF REDNESS OR INFILTRATION NOTED; NS RUNNING @ 100ML/HR; PATIENT TOLERATING IVF WELL; ALL NEEDS RENDERED; SAFETY AND SEIZURE PRECAUTIONS IMPLEMENTED; BED LOCKED IN LOW POSITION; SIDE RAILS X3; CALL LIGHT WITHIN EASY REACH; WILL ENDORSE CHARLEY TO ONCOMING SHIFT
[2019-10-04 06:38] LABS: BASOPHILS # (AUTO) 0.1 /CMM (0.0-0.2); BASOPHILS % (AUTO) 0.6 % (0.0-2.0); EOSINOPHILS % (AUTO) 0.7 % (0.0-6.0); HEMATOCRIT 30 % (33-45); HEMOGLOBIN 10.1 g/dL (11.5-14.8); LYMPHOCYTES # (AUTO) 0.7 /CMM (0.8-4.8); LYMPHOCYTES % (AUTO) 7.1 % (20.0-44.0); MEAN CORPUSCULAR HGB CONC 33 g/dl (31.0-36.0); MEAN CORPUSCULAR VOLUME 103 fL (82-100); MONOCYTES # (AUTO) 1.2 /CMM (0.1-1.30); MONOCYTES % (AUTO) 11.3 % (2.0-12.0); NEUTROPHILS # (AUTO) 8.3 /CMM (1.8-8.9); NEUTROPHILS % (AUTO) 80.3 % (43.0-81.0); PLATELET COUNT (AUTO) 59 /CMM (150-450); RED BLOOD CELL COUNT(AUTO) 2.96 MIL/uL (4.0-5.2); WHITE BLOOD COUNT (AUTO) 10.3 K/uL (4.3-11.0)
[2019-10-04 07:03] LABS: CALCIUM, SERUM 7.7 mg/dL (8.5-10.1); CREATININE 0.3 mg/dL (0.6-1.3); MAGNESIUM 1.3 mg/dL (1.8-2.4); POTASSIUM 3.5 mmol/L (3.5-5.1)
[2019-10-04] MEDS ORDERED: AMPI500C11 PO (07:21)
[2019-10-04] MEDS: Magnesium 1GM/D5W 100ML PREMIX 100 ML IV SCH ×4 (07:49→11:37)
[2019-10-04 07:59] VITALS: BP 153/118
--- NOTE | 2019-10-04 08:00 | NUR ---
COLLECTIONS AND ARCHIVES DIRECTOR OPENING NOTES PATIENT RESTING IN BED COMFORTABLY; A/OX1-2; PATIENT CONFUSED; BREATHING EVEN AND UNLABORED; PATIENT TOLERATING ROOM AIR WELL, NO SOB OR ACUTE RESPIRATORY DISTRESS NOTED; TELE MONITOR, READS ST 120 HR; PATRICK MIDLINE INTACT AND PATENT; FLUSHING WELL; PATIENT TOLERATING NS @ 100ML/HR WELL; PATIENT DENIES PAIN; SAFETY AND SEIZURE PRECAUTIONS IN PLACE; DHEERAJ. SIDERAILS PADDED.BED LOCKED IN LOW POSITION; BILATERAL SIDE RAILS X2; CALL LIGHT WITHIN REACH; WILL CONTINUE TO MONITOR
--- NOTE | 2019-10-04 09:06 | NUR ---
WOUND CARE CONSULT: PT PRESENTS WITH DRY SCABS AND BRUISES, PRESENT ON ADMISSION. PT IS MOSTLY CONTINENT AND IS ABLE TO REPOSITION IN BED. WILL SEE PRN.
[2019-10-04] MEDS: MULTIVITAMINS,THERAGRAN 1 UDTAB TABLET PO SCH (09:29)
--- NOTE | 2019-10-04 09:30 | NUR ---
DURING ROUNDS,FOUND PT LYING ON THE FLOOR WITH HER HEAD LIFTED UP,PT REMAINS ALERT AND VERBALLY RESPONSIVE ALREADY WANTING TO CALL HER DAUGHTER,XIMENA EVEN WHILE LYING ON THE FLOOR.EXPLAINED TO THE PT THAT SHE NEEDS TO BE PLACED IN BED BEFORE CALLING HER DAUGHTER.PLACED PT IN BED WITH 2 PERSON ASSIST. PT'S BLE IS VERY UNSTEADY AND UNABLE TO STAND UP ON HER OWN EVEN WITH ASSIST.DENIES ANY PAIN OR DISTRESS-INSISTING TO CALL HER DAUGHTER IF NOTHING HAPPENED.BODY CHECK DONE-SKIN INTACT AND NO INJURY NOTED.WILL NOTIFY DR FREDERICK AND PT'S DTR, XIMENA.
--- NOTE | 2019-10-04 09:35 | NUR ---
PLACED PT ON BED ALARM AND EMPHASIZED TO USE CALL LIGHT WHEN ASSISTANCE IS NEEDED.CALL LIGHT PLACED WITHIN REACH.
--- NOTE | 2019-10-04 09:40 | NUR ---
CALLED PT'S DTR,XIMENA AND MADE AWARE OF THE FALL. XIMENA WAS SAYING THAT SHE CAN'T TAKE CARE OF HER MOM ALL THE TIME SPECIALLY WHEN SHE IS AT WORK. XIMENA STATED THAT SHE FINDS HER MOM ON THE FLOOR MOST OF THE TIME AND SHE IS AFRAID THAT SHE WILL BREAK HER BACK FROM PICKING HER MOM ON THE FLOOR ALL THE TIME.PT GOT UPSET WHEN REMINDED TO USE THE CALL LIGHT SAYING THAT THE DOCTOR SAID SHE IS OK TO GO HOME.EXPLAINED TO THE PT THAT SHE IS UNSTEADY AND NEEDS ASSISTANCE TO GO THE TOILET.NO S/S OF FX OR SWELLING NOTED ON BUE/BLE.NO INJURY NOR OPEN WOUND NOTED.PAGED DR FREDERICK AND AWAITING TO RETURN CALL.
--- NOTE | 2019-10-04 10:00 | NUR ---
PT HAS EPISODE OF FORGETFULNESS AND CONFUSION SAYING SHE CAN MANAGE TO GO TO THE BATHROOM TO VOID.EXPLAINED THAT SHE IS UNSTEADY AND UNSAFE TO WALK. OFFERED TO USE BEDPAN BUT PT REFUSED. PT HAS HER DIAPER ON.
--- NOTE | 2019-10-04 10:18 | NUR ---
DR FREDERICK RETURNED CALL AND MADE AWARE OF PT'S FALL INCIDENT AND ORDERED PT EVAL.
--- NOTE | 2019-10-04 10:30 | NUR ---
Estefani SUNG DID PT EVAL ON THE PT AND HE REPORTED THAT PT IS UNSAFE TO BE DC HOME DUE TO UNSTEADINESS AND RECOMMENDED SNF FOR THE PT.WILL INFORM
--- NOTE | 2019-10-04 10:40 | NUR ---
NOTIFIED DR FREDERICK OF P.T. EVAL RECOMMENDATION AND SPOKE TO GUN SEALING MACHINE OPERATOR WHO STATED THAT PT WON'T QUALIFY FOR SNF AND WILL BE PAID UNDER FAMILY'S EXPENSE. DTR,XIMENA MADE AWARE AND WAS CRYING. XIMENA WANTS TO TALK TO THE GUN SEALING MACHINE OPERATOR.GUN SEALING MACHINE OPERATOR MADE AWARE.
[2019-10-04] MEDS: LORAZEPAM 1 MG TABLET PO PRN (11:42)
--- NOTE | 2019-10-04 14:55 | NUR ---
PT HAS A MULTIPLE BRUISES IN THE LT ANTERIOR THIGH,LT FOREHEAD,BLE AND DHEERAJ ARMS.PT STATED THAT SHE OBTAINED IT FROM A FALL FROM HER HOME WHEN SHE HIT THE HOSPITAL BED HITTING HER LT ANTERIOR THIGH CAUSING A BIG BRUISE FROM THE FALL.SHE STATED THAT HER OTHER BUE BRUISES ARE CAUSED BY BLOOD DRAW.DENIES ANY ABUSE.PT LIVES WITH HER DAUGHTER,XIMENA HARRISON WHO TAKES CARE OF HER.
[2019-10-04 15:55] VITALS: BP 129/76
--- NOTE | 2019-10-04 17:52 | NUR ---
DISCHARGED PT HOME VIA PRIVATE CAR PICKED UP BY HER DTRXIMENA WITH STABLE V/S.PROVIDED WALKER AND BEDPAN TO BE USED HOME.PROVIDED ATB PRESCRIPTION ELECTRONICALLY [facility] IN [place].PATRICK MIDLINE REMOVED WITH NO BLEEDING OR SWELLING NOTED ON THE SITE.DENIES PAIN OR DISTRESS AND IS JUST VERY EAGER TO GO HOME.
== END 2019-10-04 17:35 | disposition home or self-care (01) | DRG 53 ==
LOC: ER 03:35 → TELE2 05:41 → TELE 13:17
PROVIDERS: ADMIT Nurse Practitioner Acute Care; ATTEND Family Medicine
PROC: 05HC33Z Insertion of Infusion Device into Left Basilic Vein, Percutaneous Approach (ICD-10-PCS; principal; 2019-10-02)
DX: G40.409 Other generalized epilepsy and epileptic syndromes, not intractable, without status epilepticus (principal); G93.41 Metabolic encephalopathy; K85.90 Acute pancreatitis without necrosis or infection, unspecified; E44.0 Moderate protein-calorie malnutrition; E87.2 Acidosis; K86.1 Other chronic pancreatitis; E87.6 Hypokalemia; I10 Essential (primary) hypertension; N39.0 Urinary tract infection, site not specified; E83.42 Hypomagnesemia; D57.1 Sickle-cell disease without crisis; E83.39 Other disorders of phosphorus metabolism; E78.5 Hyperlipidemia, unspecified; F32.9 Major depressive disorder, single episode, unspecified; F41.9 Anxiety disorder, unspecified; G47.00 Insomnia, unspecified; F10.10 Alcohol abuse, uncomplicated; B95.2 Enterococcus as the cause of diseases classified elsewhere; R41.0 Disorientation, unspecified
CPT/HCPCS: 36410; 36415; 70450-TC; 71045-TC; 80048-TC; 80053-TC; 80061-TC; 80076-TC; 81000-TC; 82436-TC; 83690-TC; 83735-TC; 83935-TC; 84100-TC; 84133-TC; 84300-TC; 84443-TC; 84484-TC; 85025-TC; 87081-TC; 87086-TC; 87186-TC; 95819-TC; 97530-TC; A4216; G0378; J0290; J0696; J2060; J3475; J3480; J3490; J7030; J7050; J7060

== ENCOUNTER 2020-09-14 18:33 | Emergency (ER) | payer MEDICAID, OTHER ==
[~2020-09-14] VITALS: Ht 165.1 cm; Wt 63.0 kg
[~2020-09-14 18:33] MED LIST: AMPI500C11 PO
[2020-09-14 18:40] VITALS: BP 143/84
--- NOTE | 2020-09-14 18:41 | NUR ---
KASSIDY MARTINEZ AT BEDSIDE FOR EVAL.
[2020-09-14] MEDS ORDERED: HYDROCODONE/APAP 5/325MG TABLET ONE (18:52)
[2020-09-14] MEDS ORDERED: HYDROCODONE/APAP 5/325MG TABLET PO ONE (19:00)
[2020-09-14] MEDS ORDERED: HYDR-4303 PO (19:42)
[2020-10-22] MEDS ORDERED: LEVO500T90 PO (08:56)
[2020-10-22] MEDS ORDERED: QUET25TA PO (08:56)
== END 2020-09-14 19:58 | disposition home or self-care (01) ==
LOC: ER 18:33
DX: M25.572 Pain in left ankle and joints of left foot (principal); G40.909 Epilepsy, unspecified, not intractable, without status epilepticus; I10 Essential (primary) hypertension; Z79.899 Other long term (current) drug therapy
CPT/HCPCS: 73610-TC

== ENCOUNTER 2020-10-15 20:22 | Inpatient (IN) | payer OTHER ==
[~2020-10-15] VITALS: Ht 167.6 cm; Wt 79.8 kg
[~2020-10-15 20:22] MED LIST changes: +HYDR-4303 PO
--- NOTE | 2020-10-15 20:57 | NUR ---
PRESENTED TO THE ER FOR C/O R HIP PAIN S/P SLIP ON A WET FLOOR. PT DENIED FALLING AND TOUCHING THE GROUND. DENIED HITTING THE HEAD OR KO. PLACED IN BED 1, ON MONITOR, VSS. WILL CONT TO MONITOR
[2020-10-15] MEDS ORDERED: KETOROLAC TROMETHAMINE INJ 30 MG/ML VIAL ONE (21:10)
[2020-10-15] MEDS ORDERED: HYDROMORPHONE 1 MG/1 ML DISP.SYRIN ONE (21:10)
[2020-10-15] MEDS ORDERED: ONDANSETRON 4 MG TAB.RAPDIS ONE (21:10)
--- NOTE | 2020-10-15 21:11 | NUR ---
rad at bed side
--- NOTE | 2020-10-15 21:21 | NUR ---
YOLAID SWABBED, SENT TO LAB.
[2020-10-15] MEDS ORDERED: ONDANSETRON HCL/PF - ER 4 MG/2 ML VIAL IV ONE (21:30)
[2020-10-15] MEDS ORDERED: HYDROMORPHONE 1 MG/1 ML DISP.SYRIN IV ONE ×2 (21:30→23:30)
[2020-10-15] MEDS ORDERED: ONDANSETRON 4 MG TAB.RAPDIS SL ONE (21:30)
[2020-10-15] MEDS ORDERED: HYDROMORPHONE 1 MG/1 ML DISP.SYRIN IM ONE (21:30)
[2020-10-15] MEDS ORDERED: KETOROLAC TROMETHAMINE INJ 30 MG/ML VIAL IV ONE (21:30)
--- NOTE | 2020-10-15 21:38 | NUR ---
two attempts to start an IV line and draw blood. unsuccessful
[2020-10-15] MEDS ORDERED: ONDANSETRON HCL/PF 4 MG/2 ML VIAL ONE (21:44)
[2020-10-15 21:48] LABS: BASOPHILS % (AUTO) 0.4 % (0.0-2.0); EOSINOPHILS % (AUTO) 0.3 % (0.0-6.0); HEMATOCRIT 35 % (33-45); HEMOGLOBIN 11.2 g/dL (11.5-14.8); LYMPHOCYTES # (AUTO) 0.5 /CMM (0.8-4.8); LYMPHOCYTES % (AUTO) 3.5 % (20.0-44.0); MEAN CORPUSCULAR HGB CONC 32 g/dl (31.0-36.0); MEAN CORPUSCULAR VOLUME 101 fL (82-100); MONOCYTES # (AUTO) 1.1 /CMM (0.1-1.30); MONOCYTES % (AUTO) 7.9 % (2.0-12.0); NEUTROPHILS # (AUTO) 11.9 /CMM (1.8-8.9); NEUTROPHILS % (AUTO) 87.9 % (43.0-81.0); PLATELET COUNT (AUTO) 119 /CMM (150-450); RED BLOOD CELL COUNT(AUTO) 3.47 MIL/uL (4.0-5.2); WHITE BLOOD COUNT (AUTO) 13.5 K/uL (4.3-11.0)
--- NOTE | 2020-10-15 21:49 | NUR ---
BROUGHT TO CT
[2020-10-15 22:01] LABS: CALCIUM, SERUM 8.6 mg/dL (8.5-10.1); CREATININE 0.6 mg/dL (0.6-1.3); POTASSIUM 3.7 mmol/L (3.5-5.1)
--- NOTE | 2020-10-15 22:24 | NUR ---
LAB CALLED REGARDING NEGATIVE COVID RESULT.
--- NOTE | 2020-10-15 23:09 | NUR ---
ER JUAN RAMOS TALKING TO DR. MORRISON REGARDING PT ADMISSION
--- NOTE | 2020-10-15 23:13 | NUR ---
CALLED FUR EX[facility] DR. UMANZOR ([facility]) [phone], VOICE MAIL LEFT. WAITING FOR CALL BACK
--- NOTE | 2020-10-15 23:56 | NUR ---
PT ASSIGNED TO 115-1
[2020-10-16] MEDS ORDERED: ONDANSETRON HCL/PF 4 MG/2 ML VIAL IVP PRN
[2020-10-16] MEDS ORDERED: MAGNESIUM HYDROXIDE 30 ML UDC PO PRN
[2020-10-16] MEDS ORDERED: MAG HYDROX/AL HYDROX/SIMETH 30 ML UDC PO PRN
[2020-10-16] MEDS ORDERED: Z GUARD REMEDY 2 OZ OINT TP PRN
[2020-10-16] MEDS ORDERED: ACETAMINOPHEN 325 MG TABLET PO PRN
--- NOTE | 2020-10-16 00:02 | NUR ---
2ND ATTEMPT TO CONTACT [facility]OOK[facility] OFF, VOICE MAIL LEFT.
--- NOTE | 2020-10-16 00:13 | NUR ---
REPORT GIVEN TO AMRITA
[2020-10-16 00:20] VITALS: BP 116/77
[2020-10-16] MEDS ORDERED: AMLO-212 PO (00:26)
[2020-10-16] MEDS ORDERED: FOLI0.4T6 PO (00:26)
[2020-10-16] MEDS ORDERED: DULO20CA PO (00:26)
[2020-10-16] MEDS ORDERED: METH2.5T PO (00:26)
[2020-10-16] MEDS ORDERED: CHOL400T11 PO (00:26)
[2020-10-16] MEDS ORDERED: BUPR1FIL SL (00:26)
[2020-10-16] MEDS ORDERED: CYCL30CA PO (00:26)
[2020-10-16] MEDS ORDERED: GABA600T12 PO (00:26)
[2020-10-16] MEDS ORDERED: LEVE100023 PO (00:26)
[2020-10-16] MEDS ORDERED: PRED1TAB PO (00:26)
--- NOTE | 2020-10-16 00:27 | NUR ---
PT WAS TRANSFERRED TO [facility] IN STABLE CONDITION
--- NOTE | 2020-10-16 00:30 | NUR ---
RECEIVED PT FROM ER VIA [facility] AWAKE A/O X4 ON O2 2L VIA NC SPO2 98% PATIENT IS MOANING AND SCREAMING ON PAIN ON HER RIGHT HIPS WHEN WE ARE TRANSFERRING HER FROM [facility] TO [facility], V/S CHECKED AND RECORDED HEAD TO TOE ASSESSMENT DONE BUT LIMITED ONLY ON FRONT SIDE DUE TO PATIENT CANNOT TURN BECAUSE OF THE PAIN, INITIAL ADMISSION ASSESSMENT DONE, ASK MD FOR CARMONA CATHETER INSERTION AND SHE AGREE NOTED AND CARRIED OUT, F16 CARMONA CATHETER INSERTED WITH YELLOW URINE DRAINING, PT HAVE RIGHT WRIST # 22 PATENT AND FLUSHED SAFETY MEASURE INITIATED BED ON LOWEST POSITION AND LOCKED SIDE RAILS UP X 2 CALL LIGHT WITHIN REACH WILL CONT TO MONITOR THE PT
--- NOTE | 2020-10-16 01:00 | NUR ---
UPON DOING THE INTERVIEW THE PT STATED THAT SHE IS SUPPOSED TO RECEIVED HER 2ND DOSE OF COVID VACCINE TODAY 10/16/[address] MICAH STEVEN, SHE CAN NOT REMEMBER WHICH BRAND SHE RECEIVED FIRST DOSE Addendum: 10/16/20 at 0600 by AMRITA WADE RN PT SHOW HER VACCINE CARD AND THE SECOND DOSE DATE SCHEDULE IS 10/23/20 @ 0900 NOT 10/16/20 BUT THERE IS NO RECORD WHICH VACCINE SHE RECEIVED IF IT IS PFIZER OR MODERNA
[2020-10-16] MEDS: IV D5/0.45 NACL 1,000 ML IV PRN ×2 (01:03→10:20)
[2020-10-16] MEDS: MORPHINE SULFATE INJ 2 MG/ML DISP.SYRIN IV PRN ×2 (01:04→04:54)
[2020-10-16] MEDS: HYDROCODONE/APAP 5/325MG TABLET PO PRN ×3 (02:24→21:04)
[2020-10-16] MEDS: ZOLPIDEM TARTRATE 5 MG TABLET PO PRN ×2 (05:03→21:04)
--- NOTE | 2020-10-16 05:25 | NUR ---
HEARD PT CRYING GO TO HER ROOM AND SHE COMPLAIN OF VERY SHARP PAIN ON HER RIGHT HIP, SHE SAID MAYBE SHE CAN HAVE A DILAUDID INSTEAD OF MORPHINE BECAUSE ON HER EXPERIENCE BEFORE THE DILAUDID IS MORE EFFECTIVE THAT MORPHINE, I PAGE DR MORRISON AND ASK IF WE CAN CHANGE MORPHINE TO DILAUDID AND SHE AGREE TO ORDER DILAUDID 1MG IV Q4H PRN FOR PAIN AND DC THE MORPHINE ORDER NOTED AND CARRIED OUT
[2020-10-16] MEDS ORDERED: HYDROMORPHONE 1 MG/1 ML DISP.SYRIN IV PRN (06:00)
[2020-10-16 06:18] LABS: THYROID STIMULATING HORMONE 0.4 uIU/mL (0.358-3.74)
[2020-10-16 06:31] LABS: BASOPHILS % (AUTO) 0.2 % (0.0-2.0); EOSINOPHILS % (AUTO) 0.7 % (0.0-6.0); HEMATOCRIT 27 % (33-45); HEMOGLOBIN 9.1 g/dL (11.5-14.8); LYMPHOCYTES # (AUTO) 0.8 /CMM (0.8-4.8); LYMPHOCYTES % (AUTO) 8.9 % (20.0-44.0); MEAN CORPUSCULAR HGB CONC 33 g/dl (31.0-36.0); MEAN CORPUSCULAR VOLUME 99 fL (82-100); MONOCYTES # (AUTO) 0.9 /CMM (0.1-1.30); MONOCYTES % (AUTO) 9.8 % (2.0-12.0); NEUTROPHILS # (AUTO) 7.1 /CMM (1.8-8.9); NEUTROPHILS % (AUTO) 80.4 % (43.0-81.0); PLATELET COUNT (AUTO) 106 /CMM (150-450); RED BLOOD CELL COUNT(AUTO) 2.74 MIL/uL (4.0-5.2); WHITE BLOOD COUNT (AUTO) 8.8 K/uL (4.3-11.0)
--- NOTE | 2020-10-16 06:48 | NUR ---
PT ON BED AWAKE STILL COMPLAINING OF PAIN ON RIGHT HIP DESPITE THE DOSE OF PRN PAIN MEDICATION, BUT NOT CRYING ANYMORE, STILL ON NPO STATUS ON O2 2L VIA NC SPO2 95-97% ALL NEEDS ATTENDED, BED ON LWOEST POSITION AND LOCKED SIDE RAILS UP X 2 CALL LIGHT WITHIN REACH WILL ENDORSE TO AM SHIFT NURSE
[2020-10-16 07:15] LABS: CALCIUM, SERUM 8.1 mg/dL (8.5-10.1); CREATININE 0.5 mg/dL (0.6-1.3); MAGNESIUM 1.9 mg/dL (1.8-2.4); PHOSPHORUS 3.6 mg/dL (2.5-4.9); POTASSIUM 4.2 mmol/L (3.5-5.1)
--- NOTE | 2020-10-16 07:55 | NUR ---
MS RN OPENING NOTE PATIENT IS IN BED RESTING, PATIENT IS IN NO ACUTE DISTRESS. PATIENT IS ON 2L OXYGEN, TOLERATING WELL, NO SON NOTED. PATIENT HAS CARMONA CATHETER. SAFETY PRECAUTIONS ARE ON, BED IS LOCKED IN THE LOWEST POSITION, SIDE RAILS ARE UP, CALL LIGHT WITHIN REACH. WILL CONTINUE TO MONITOR CLOSELY.
[2020-10-16 08:00] VITALS: BP 104/73
[2020-10-16] MEDS ORDERED: DULOXETINE HCL 20 MG CAPSULE.DR PO SCH ×2 (09:00)
[2020-10-16] MEDS ORDERED: LEVETIRACETAM (250 MG) 250 MG TABLET PO SCH (09:00)
[2020-10-16] MEDS: AMLODIPINE BESYLATE 5 MG TABLET PO SCH (09:00)
[2020-10-16] MEDS: GABAPENTIN 300 MG CAPSULE PO SCH ×4 (09:43→21:04)
[2020-10-16] MEDS: CHOLECALCIFEROL (VITAMIN D 3) 400 UNIT TABLET PO SCH (09:44)
[2020-10-16] MEDS: PANTOPRAZOLE 40 MG VIAL IV SCH (09:45)
[2020-10-16] MEDS: HYDROMORPHONE 1 MG/1 ML DISP.SYRIN IV PRN ×4 (10:21→23:02)
[2020-10-16 16:00] VITALS: BP 101/68
--- NOTE | 2020-10-16 18:56 | NUR ---
MS RN CLOSING NOTE PATIENT IS IN BED RESTING, PATIENT IS IN NO ACUTE DISTRESS. PATIENT IS ON 2L OXYGEN, TOLERATING WELL, NO SON NOTED. PATIENT HAS CARMONA CATHETER. PATIENT WILL HAVE SURGERY FOR RIGHT HIP HEMIARTHROPLASTY TOMORROW. SAFETY PRECAUTIONS ARE ON, BED IS LOCKED IN THE LOWEST POSITION, SIDE RAILS ARE UP, CALL LIGHT WITHIN REACH. ENDORSE PATIENT TO POWERHOUSE MECHANIC NURSE FOR [facility]LEY.
--- NOTE | 2020-10-16 19:30 | NUR ---
RN OPENING NOTES: RECEIVED PT A/OX4 IN BED RESTING COMFORTABLY. PATIENT IN NO S/SX OF ACUTE DISTRESS AT THIS TIME. NO SOB NOTED. PATIENT'S BREATHING IS EVEN AND UNLABORED. PATIENT IS ON 2L OF OXYGEN VIA NC; TOLERATING WELL. PATIENT ON REGULAR DIET; TOLERATES WELL. NOTED IV SITE ON R WRIST#22; PATENT, INTACT AND FLUSHING WELL; NO S/S OF INFECTION OR INFILTRATION. WITH IV FLUID RUNNING ORDERED. CARMONA CATH IN PLACE, MODERATE URINE OUTPUT NOTED. SAFETY MEASURES HAVE BEEN PROVIDED AND IMPLEMENTED. PATIENT BED ALARM IS ON. HEAD OF BED ELEVATED. BED IS LOCKED, IN LOWEST POSITION AND SIDE RAILS UP. CALL LIGHT WITHIN REACH OF THE PATIENT. APPLICABLE ISOLATION PRECAUTIONS IN PLACE. WILL CONTINUE TO MONITOR AND REASSESS FOR ANY CHANGES AND WILL CARRY OUT ANY ONGOING AND ACTIVE MD ORDER.
[2020-10-16 20:00] VITALS: BP 98/71
[2020-10-16] MEDS: LEVETIRACETAM (250 MG) 250 MG TABLET PO SCH (21:04)
--- NOTE | 2020-10-16 21:45 | NUR ---
RN NOTES ATTEMTED TO FACILITATE ADDITIONAL IV ACCESS/LINE FOR PT PT WILL BE HAVING SURGERY IN THE MORNING. ATTEMPT UNSUCCESSFUL , DIGITAL MARKETING PROGRAM MANAGER MADE AWARE AND ANASTASIA GUILLEN MADE AWARE AND REQUESTED FOR MIDLINE ACCESS; REQUESTED. DIGITAL MARKETING PROGRAM MANAGER WELL AWARE.
--- NOTE | 2020-10-16 23:00 | NUR ---
RN NOTES NO CHANGE IN PATIENT CONDITION AT THIS TIME PATIENT VITALS STABLE, NO SIGNS OF ACUTE RESPIRATORY DISTRESS. MATCHER MADE AWARE. WILL CONTINUE TO MONITOR AND REASSESS FOR ANY CHANGES THROUGHOUT THE SHIFT.
[2020-10-17 04:00] VITALS: BP 117/72
[2020-10-17] MEDS: HYDROMORPHONE 1 MG/1 ML DISP.SYRIN IV PRN (06:19)
[2020-10-17 06:42] LABS: CALCIUM, SERUM 8.5 mg/dL (8.5-10.1); CREATININE 0.5 mg/dL (0.6-1.3); POTASSIUM 4.1 mmol/L (3.5-5.1)
--- NOTE | 2020-10-17 07:00 | NUR ---
RN CLOSING NOTE: PATIENT REMAINS IN ROOM IN NO SIGNS OF RESPIRATORY DISTRESS, PATIENT STILL ON 2L OF 02 VIA NC;TOLERATING WELL SATURATING @ >95% SP02. SAFETY MEASURES IMPLEMENTED, BED IN LOWEST POSITION, LOCKED, SIDE RAILS UP, CALL LIGHT WITHIN REACH. ALL NEEDS AND ORDERS ADDRESSED DURING THE SHIFT. IV ACCESS MAINTAINED INTACT, SECURED AND FLUSHING WELL. ALL DUE MEDS GIVEN ORDERED & SCHEDULED ; PATIENT TOLERATED WELL. PATIENT KEPT CLEAN AND COMFORTABLE WITHIN THE SHIFT. PATIENT ENDORSED TO INCOMING SHIFT RN WITH STABLE VITAL SIGN AND FOR CONTINUITY OF CARE, WILL ALSO INFORM AM SHIFT RN THAT PT WILL BE HAVING AM PROCEDURE (HEMIARTHROPLASTY) CONSENTS SECURED AND PLACED IN THE CHART, PRE OP CHECK LIST INITIATED AND TO BE COMPLETED (IN THE CHART) ALSO TO F/U WITH MIDLINE INSERTION PRIOR TO SX. AM SHIFT UNDER CUTTER ALSO INFORMED.
[2020-10-17] MEDS: HYDROCODONE/APAP 5/325MG TABLET PO PRN ×3 (07:27→20:51)
--- NOTE | 2020-10-17 07:33 | NUR ---
RN OPENING NOTE PATIENT AWAKE IN BED. A/O X3 AND DANISH SPEAKING. COMPLAINTS OF PAIN PRESENT. NO COMPLAINT OF NAUSEA. CURRENTLY ON 2L NC WITH NO SOB OR RESPIRATORY DISTRESS PRESENT. NO EDEMA PRESENT. SKIN IS INTACT. FEMUR FX PRESENT. ON BEDREST. F/C PRESENT. HL PRESENT ON R WRIST 22G. SAFETY MEASURES IN PLACE. SIDE RAILS RAISED. BED LOWERED. CALL LIGHT WITHIN REACH. WILL CONTINUE TO MONITOR.
[2020-10-17 07:47] LABS: BASOPHILS % (AUTO) 0.2 % (0.0-2.0); HEMATOCRIT 31 % (33-45); HEMOGLOBIN 10.3 g/dL (11.5-14.8); LYMPHOCYTES # (AUTO) 0.7 /CMM (0.8-4.8); LYMPHOCYTES % (AUTO) 11.5 % (20.0-44.0); MEAN CORPUSCULAR HGB CONC 33 g/dl (31.0-36.0); MEAN CORPUSCULAR VOLUME 101 fL (82-100); MONOCYTES # (AUTO) 0.9 /CMM (0.1-1.30); NEUTROPHILS # (AUTO) 4.5 /CMM (1.8-8.9); NEUTROPHILS % (AUTO) 72.3 % (43.0-81.0); PLATELET COUNT (AUTO) 99 /CMM (150-450); WHITE BLOOD COUNT (AUTO) 6.2 K/uL (4.3-11.0)
[2020-10-17 08:00] VITALS: BP 120/77
[2020-10-17] MEDS ORDERED: HYDROMORPHONE 1 MG/1 ML DISP.SYRIN IV PRN (08:30)
[2020-10-17] MEDS: DULOXETINE HCL 30 MG CAPSULE.DR PO SCH (09:00)
[2020-10-17] MEDS: LEVETIRACETAM (250 MG) 250 MG TABLET PO SCH ×2 (09:00→20:39)
[2020-10-17] MEDS: CHOLECALCIFEROL (VITAMIN D 3) 400 UNIT TABLET PO SCH (09:00)
[2020-10-17] MEDS: PANTOPRAZOLE 40 MG VIAL IV SCH (09:00)
[2020-10-17] MEDS: GABAPENTIN 300 MG CAPSULE PO SCH ×4 (09:00→20:39)
[2020-10-17] MEDS: AMLODIPINE BESYLATE 5 MG TABLET PO SCH (09:00)
[2020-10-17] MEDS ORDERED: BACITRACIN 50000 UNITS/VIAL ONE (09:05)
[2020-10-17] MEDS ORDERED: ANESTHESIA TRAY IN PYXIS 1 EA TRAY MC ONE (09:05)
[2020-10-17] MEDS ORDERED: FENTANYL PF 250MCG/5ML AMPUL ONE (09:23)
[2020-10-17] MEDS ORDERED: HYDROMORPHONE INJ 2 MG/ML DISP.SYRIN ONE (09:24)
[2020-10-17] MEDS ORDERED: MIDAZOLAM HCL 2 MG/2ML VIAL ONE (09:24)
[2020-10-17] MEDS ORDERED: SUCCINYLCHOLINE CHLORIDE 20 MG/ML VIAL ONE (09:43)
[2020-10-17] MEDS ORDERED: ROCURONIUM BROMIDE 50 MG/5 ML ONE (09:43)
[2020-10-17] MEDS ORDERED: TRANEXAMIC ACID 1,000 MG in IV NS 0.9% 100 ML IV ONE (10:30)
[2020-10-17 12:00] VITALS: BP 115/70
--- NOTE | 2020-10-17 14:02 | NUR ---
RN NOTE PATIENT RETURNED FROM SURGERY FOR R HIP ARTHROPLASTY. INCISION PRESENT ON R HIP. DRESSING KEPT CLEAN AND DRY. PATIENT IS AWAKE AND ALERT. NO SOB OR RESPIRATORY DISTRESS. V/S STABLE. SAFETY MEASURES IN PLACE. WILL CONTINUE TO MONITOR.
[2020-10-17] MEDS: HYDROMORPHONE INJ 2 MG/ML DISP.SYRIN IV PRN ×2 (14:56→18:44)
[2020-10-17] MEDS: CYCLOBENZAPRINE 10 MG TABLET PO PRN (17:44)
--- NOTE | 2020-10-17 17:57 | NUR ---
RN CLOSING NOTE PATIENT AWAKE IN BED. A/O X3 AND GIBRALTARIAN SPEAKING. COMPLAINTS OF PAIN PRESENT. NO COMPLAINT OF NAUSEA. CURRENTLY ON 2L NC WITH NO SOB OR RESPIRATORY DISTRESS PRESENT. NO EDEMA PRESENT. SKIN IS INTACT. R HIP INCISION PRESENT. ON BEDREST. F/C PRESENT. HL PRESENT ON R WRIST 22G. MIDLINE PRESENT ON PATRICK 18G. SAFETY MEASURES IN PLACE. SIDE RAILS RAISED. BED LOWERED. REPORT TO BE GIVEN TO NIGHT NURSE
[2020-10-17] MEDS: ANCEF 1 GM/50 ML D5W IV SCH (18:44)
--- NOTE | 2020-10-17 19:30 | NUR ---
RN OPENING NOTES: RECEIVED PT A/OX3-4 IN BED RESTING COMFORTABLY, S/P R HIP ARTHROPLASTY. PATIENT IN NO S/SX OF ACUTE DISTRESS AT THIS TIME. NO SOB NOTED. PATIENT'S BREATHING IS EVEN AND UNLABORED. PATIENT IS ON 2L OF OXYGEN VIA NC; TOLERATING WELL. PATIENT ON REGULAR DIET; TOLERATES WELL. NOTED IV SITE ON R WRIST#22 AND R UA MIDLINE #18; PATENT, INTACT AND FLUSHING WELL; NO S/S OF INFECTION OR INFILTRATION. WITH IV FLUID RUNNING ORDERED. CARMONA CATH IN PLACE, MODERATE URINE OUTPUT NOTED. SURGICAL SITE @ R HIP NOTED WITH DRESSING SECURED, DRY AND INTACT. SAFETY MEASURES HAVE BEEN PROVIDED AND IMPLEMENTED. PATIENT BED ALARM IS ON. HEAD OF BED ELEVATED. BED IS LOCKED, IN LOWEST POSITION AND SIDE RAILS UP. CALL LIGHT WITHIN REACH OF THE PATIENT. APPLICABLE ISOLATION PRECAUTIONS IN PLACE. WILL CONTINUE TO MONITOR AND REASSESS FOR ANY CHANGES AND WILL CARRY OUT ANY ONGOING AND ACTIVE MD ORDER.
[2020-10-17 20:00] VITALS: BP 97/73
[2020-10-17] MEDS: IV D5/0.45 NACL 1,000 ML IV PRN ×2 (20:01)
[2020-10-17] MEDS: ZOLPIDEM TARTRATE 5 MG TABLET PO PRN (20:39)
--- NOTE | 2020-10-17 23:00 | NUR ---
RN NOTES NO CHANGE IN PATIENT CONDITION AT THIS TIME PATIENT VITALS STABLE, NO SIGNS OF ACUTE RESPIRATORY DISTRESS. SENIOR QUALITY ASSURANCE SPECIALIST MADE AWARE. WILL CONTINUE TO MONITOR AND REASSESS FOR ANY CHANGES THROUGHOUT THE SHIFT.
[2020-10-18] MEDS: ANCEF 1 GM/50 ML D5W IV SCH (01:17)
--- NOTE | 2020-10-18 02:38 | NUR ---
RN NOTES CALLED 3[facility], SPOKE WITH SHWETA ADKINS. PROVIDED ENDORSEMENT REPORT FOR [facility]/ TRANSFER OF PATIENT FROM [facility] TO [facility] IN RM 310 BED#2. ALL PERTINENT INFO ABOUT PT'S STATUS AND CONDITION PROVIDED. SHWETA ADKINS ACKNOWLEDGED. INSTRUCTIONAL TECHNOLOGY TEACHER MADE AWARE.
--- NOTE | 2020-10-18 03:20 | NUR ---
RN NOTES PATIENT TRANSFERRED TO ROOM [facility]-[address] [place] [address] USING THE ACLS PROTOCOL. PATIENT SAFETY WAS MAINTAINED, ALL PATIENT BELONGINGS AND MEDS TRANSFERRED WITH THE PATIENT. PATIENT SAFETY WAS MAINTAINED, LUCILLE.RN RECEIVED THE PATIENT AND WILL CONTINUE CARE.
[2020-10-18] MEDS: HYDROMORPHONE INJ 2 MG/ML DISP.SYRIN IV PRN ×3 (04:00→13:32)
[2020-10-18 04:30] VITALS: BP 126/71
[2020-10-18] MEDS: HYDROCODONE/APAP 5/325MG TABLET PO PRN (05:05)
[2020-10-18] MEDS: CYCLOBENZAPRINE 10 MG TABLET PO PRN (06:15)
[2020-10-18 06:45] VITALS: BP 126/71
--- NOTE | 2020-10-18 07:00 | NUR ---
MS RN CLOSING NOTES MS RN OPENING NOTES PATIENT IS AWAKE AND LYING IN BED AT THIS TIME. PATIENT IS A/O X 3. PATIENT IS IN NO RESPIRATORY DISTRESS. PATIENT IS ON BED REST. PATIENT HAS A RIGHT UPPER ARM MIDLINE GAUGE #18. INTRAVENOUS ACCESS IS INTACT, PATENT, AND FLUSHES WELL. PATIENT'S INTRAVENOUS ACCESS ON HER RIGHT WRIST GAUGE #22 HAS BEEN DISCONTINUED. SAFETY MEASURES KEPT IN PLACE. CALL LIGHT IS WITHIN WITHIN REACH OF THE PATIENT. WILL ENDORSE CARE TO NEXT SHIFT NURSE. Addendum: 10/18/20 at 0823 by LUCILLE LYON RN MS RN CLOSING NOTES
--- NOTE | 2020-10-18 07:40 | NUR ---
MS/RN OPENING NOTES RECEIVED PATIENT IS ON BED AWAKE ALERT AND ORIENTED X3. PATIENT IS ON 2 L OXYGEN VIA NASAL CANNULA SATURATION 92%. PATIENT IN NO APPARENT RESPIRATORY DISTRESS NOTED. PATIENT COMPLAINED OF PAIN RATED 9/10. WILL CONTINUE TO MONITOR.
[2020-10-18 08:00] VITALS: BP 102/59
[2020-10-18] MEDS: IV D5/0.45 NACL 1,000 ML IV PRN ×2 (08:02→16:48)
[2020-10-18] MEDS: LEVETIRACETAM (250 MG) 250 MG TABLET PO SCH ×2 (08:29→21:23)
[2020-10-18] MEDS: PANTOPRAZOLE 40 MG VIAL IV SCH (08:29)
[2020-10-18] MEDS: GABAPENTIN 300 MG CAPSULE PO SCH ×4 (08:30→20:17)
[2020-10-18] MEDS: DULOXETINE HCL 30 MG CAPSULE.DR PO SCH (08:30)
[2020-10-18] MEDS: ENOXAPARIN SODIUM 40 MG/0.4 ML DISP.SYRIN SQ SCH (08:31)
--- NOTE | 2020-10-18 08:31 | NUR ---
MS//RN NOTES LOVENOX 40MG SUBCUTANEOUS NOT GIVEN PLATELET 99.WILL CONTINUE TO MONITOR.
[2020-10-18] MEDS: AMLODIPINE BESYLATE 5 MG TABLET PO SCH (08:33)
--- NOTE | 2020-10-18 08:33 | NUR ---
MS/RN NOTES AMLODIPINE 5MG 1 TAB PO NOT GIVEN BP 114/66 P 75. WILL CONTINUE TO MONITOR. Addendum: 10/18/20 at 0952 by ELVIE KLEIN RN /RN NOTES AMLODIPINE 5MG 1 TAB PO NOT GIVEN BP 114/66 P 97. WILL CONTINUE TO MONITOR.
[2020-10-18] MEDS: CHOLECALCIFEROL (VITAMIN D 3) 400 UNIT TABLET PO SCH (08:39)
[2020-10-18] MEDS ORDERED: CYCLOBENZAPRINE 10 MG TABLET PO PRN (09:00)
--- NOTE | 2020-10-18 09:53 | NUR ---
MS/RN NOTES AMLODIPINE 5MG 1 TAB PO NOT GIVEN BP 104/59 P 97. WILL CONTINUE TO MONITOR.
[2020-10-18] MEDS: predniSONE 1 MG TABLET PO SCH (09:55)
[2020-10-18] MEDS: FOLIC ACID 1 MG TABLET PO SCH (09:55)
[2020-10-18] MEDS: LORAZEPAM 1 MG TABLET PO PRN (11:03)
--- NOTE | 2020-10-18 11:04 | NUR ---
MS/RN NOTES ATIVAN 0.5MG (1/2 TAB OF 1MG) GIVEN BUT FORGOT TO SCAN IT. PHARMACY CALLED AND IS AWARE THAT MEDICATION WAS NOT SCANNED. PHARMACY ADVISED TO OVERRIDE AND INPUT IN THE SYSTEM THAT IT WAS GIVEN.
--- NOTE | 2020-10-18 15:00 | NUR ---
MS/RN NOTES PATIENT IS HALLUCINATING, AGITATION, SCREAMING AND PULLING OUT OF CARMONA CATHETER DR. LEMOS IS AWARE.
--- NOTE | 2020-10-18 15:19 | NUR ---
MS/RN NOTES ATIVAN 1M IV EVERY 4 HOURS PRN. URINALYSIS, CBC AND BMP. NOTED AND CARRIED OUT.
[2020-10-18] MEDS: LORAZEPAM INJ 2 MG/ML VIAL IV PRN (15:35)
[2020-10-18 16:00] VITALS: BP 114/67
--- NOTE | 2020-10-18 16:00 | NUR ---
RN NOTES DRESSING DONE
--- NOTE | 2020-10-18 18:41 | NUR ---
MS/RN CLOSING NOTES PATIENT IS ON BED ALERT AND ORIENTED X4. PATIENT IN ROOM AIR SATURATION 94%. PATIENT IN NO APPARENT RESPIRATORY DISTRESS NOTED. NO COMPLAINED OF PAIN AT THIS TIME. IV ACCESS AT RIGHT UPPER ARM MIDLINE WITH IV FLUID OF D5 1/2 NS 1L AT 125 ML/HR ON AND INFUSING WELL. SEEN AND EXAMINED BY MD WITH ORDERS MADE AND CARRIED OUT. ALL DUE MEDICATIONS WAS GIVEN. SAFETY PRECAUTIONS WAS IN PLACED. BED IN LOWEST POSITION AND LOCKED. SIDERAILS UP X2. CALL LIGHT WITHIN REACH. WILL ENDORSED TO PARTITION ASSEMBLER FOR CHARLEY.
--- NOTE | 2020-10-18 19:10 | NUR ---
MS RN OPENING NOTES PATIENT IS SLEEPING IN HER BED AT THIS TIME. PATIENT IS ALERT AND ORIENTED X3 WITH EPISODES OF CONFUSION. PATIENT IS ON ROOM AIR WITH NO RESPIRATORY DISTRESS NOTED. PATIENT HAS AN INTRAVENOUS ACCESS AT RIGHT UPPER ARM MIDLINE THAT IS INTACT AND PATENT. SAFETY PRECAUTIONS IN PLACE. BED IS IN LOWEST POSITION AND LOCKED. SIDE RAILS UP X3. CALL LIGHT IS WITHIN REACH OF THE PATIENT. WILL CONTINUE TO MONITOR THE PATIENT.
[2020-10-18 20:00] VITALS: BP 115/68
[2020-10-19] MEDS: HYDROMORPHONE INJ 2 MG/ML DISP.SYRIN IV PRN ×3 (03:37→21:04)
[2020-10-19 03:41] LABS: BASOPHILS % (AUTO) 0.2 % (0.0-2.0); EOSINOPHILS % (AUTO) 0.5 % (0.0-6.0); HEMATOCRIT 23 % (33-45); HEMOGLOBIN 7.7 g/dL (11.5-14.8); LYMPHOCYTES # (AUTO) 1.2 /CMM (0.8-4.8); LYMPHOCYTES % (AUTO) 9.5 % (20.0-44.0); MEAN CORPUSCULAR HGB CONC 34 g/dl (31.0-36.0); MEAN CORPUSCULAR VOLUME 99 fL (82-100); MONOCYTES # (AUTO) 1.9 /CMM (0.1-1.30); MONOCYTES % (AUTO) 15.3 % (2.0-12.0); NEUTROPHILS # (AUTO) 9.2 /CMM (1.8-8.9); NEUTROPHILS % (AUTO) 74.5 % (43.0-81.0); PLATELET COUNT (AUTO) 99 /CMM (150-450); RED BLOOD CELL COUNT(AUTO) 2.31 MIL/uL (4.0-5.2); WHITE BLOOD COUNT (AUTO) 12.3 K/uL (4.3-11.0)
[2020-10-19] MEDS: IV D5/0.45 NACL 1,000 ML IV PRN ×2 (03:42→12:35)
[2020-10-19 03:48] LABS: CALCIUM, SERUM 7.8 mg/dL (8.5-10.1); CREATININE 0.4 mg/dL (0.6-1.3); POTASSIUM 3.7 mmol/L (3.5-5.1)
--- NOTE | 2020-10-19 07:30 | NUR ---
MS RN CLOSING NOTES PATIENT IS SLEEPING IN HER BED AT THIS TIME. PATIENT IS ALERT AND ORIENTED X3 WITH EPISODES OF CONFUSION. PATIENT IS ON ROOM AIR WITH NO RESPIRATORY DISTRESS NOTED. PATIENT HAS AN INTRAVENOUS ACCESS AT RIGHT UPPER ARM MIDLINE THAT IS INTACT AND PATENT. SAFETY PRECAUTIONS IN PLACE. BED IS IN LOWEST POSITION AND LOCKED. SIDE RAILS UP X3. CALL LIGHT IS WITHIN REACH OF THE PATIENT. WILL ENDORSE CARE TO DAY SHIFT NURSE.
[2020-10-19 08:00] VITALS: BP 119/64
--- NOTE | 2020-10-19 08:00 | NUR ---
RN OPENING NOTE RECEIVED PATIENT IN BED SLEEPING, AO X 2, ABLE TO RESPONDS ALL STIMULI. SKIN IS WARM TO TOUCH, KEEP CLEAN/DRY, INTACT IV SITE. RESPIRATORY EVEN AND UNLABORED WITH OXYGEN AT 2PLM. KEPT ELEVATED HOB FOR ENSURE AIRWAY AND ASPIRATION PRECAUTION, ALSO LOWEST BED POSITION FOR SAFETY. CALL LIGHT WITHIN REACH, WILL CONTINUE TO MONITOR. Addendum: 10/19/20 at 0812 by TALYA FREEMAN RN ERROR
--- NOTE | 2020-10-19 08:00 | NUR ---
RN OPENING NOTE RECEIVED PATIENT IN BED SLEEPING, AO X 2, ABLE TO RESPONDS ALL STIMULI. SKIN IS WARM TO TOUCH, KEEP CLEAN/DRY, INTACT IV SITE. RESPIRATORY EVEN AND UNLABORED ON ROOM AIR. KEPT ELEVATED HOB FOR ENSURE AIRWAY AND ASPIRATION PRECAUTION, ALSO LOWEST BED POSITION FOR SAFETY. CALL LIGHT WITHIN REACH, WILL CONTINUE TO MONITOR.
--- NOTE | 2020-10-19 08:25 | NUR ---
PATIENT HGB 7.7 THIS MORNING, LOVENOX MG CLARIFIED WITH MD AND OK TO GIVE IT.
[2020-10-19] MEDS: DULOXETINE HCL 30 MG CAPSULE.DR PO SCH (08:34)
[2020-10-19] MEDS: predniSONE 1 MG TABLET PO SCH (08:34)
[2020-10-19] MEDS: GABAPENTIN 300 MG CAPSULE PO SCH ×4 (08:34→20:45)
[2020-10-19] MEDS: LEVETIRACETAM (250 MG) 250 MG TABLET PO SCH ×2 (08:35→20:46)
[2020-10-19] MEDS: FOLIC ACID 1 MG TABLET PO SCH (08:35)
[2020-10-19] MEDS: PANTOPRAZOLE 40 MG VIAL IV SCH (08:35)
[2020-10-19] MEDS: ENOXAPARIN SODIUM 40 MG/0.4 ML DISP.SYRIN SQ SCH (08:39)
[2020-10-19] MEDS: AMLODIPINE BESYLATE 5 MG TABLET PO SCH (08:41)
[2020-10-19] MEDS: CHOLECALCIFEROL (VITAMIN D 3) 400 UNIT TABLET PO SCH (09:00)
[2020-10-19] MEDS ORDERED: METHOTREXATE SODIUM (2.5MG) 2.5 MG TABLET PO SCH ×2 (09:00→20:00)
[2020-10-19] MEDS: LORAZEPAM INJ 2 MG/ML VIAL IV PRN (09:10)
--- NOTE | 2020-10-19 15:55 | NUR ---
PATIENT REFUSED URINE COLLECT.
[2020-10-19 16:00] VITALS: BP 110/59
[2020-10-19] MEDS ORDERED: QUETIAPINE FUMARATE 25 MG TABLET PO PRN (17:30)
--- NOTE | 2020-10-19 18:10 | NUR ---
RN CLOSE NOTE PATIENT IN BED, REMAINS AO X 2-3 AND CONFUSE. SKIN IS WARM TO TOUCH, KEEP CLEAN/DRY, INTACT IV SITE ON RIGHT UPPER ARM WITH IVF. RESPIRATORY EVEN AND UNLABORED ON ROOM AIR. KEPT ELEVATED HOB FOR ENSURE AIRWAY AND ASPIRATION PRECAUTION AND LOWEST BED POSITION FOR SAFETY. CALL LIGHT WITHIN REACH, WILL CONTINUE TO MONITOR.
[2020-10-19] MEDS: CYCLOBENZAPRINE 10 MG TABLET PO PRN (19:24)
[2020-10-19] MEDS: HYDROCODONE/APAP 5/325MG TABLET PO PRN (19:25)
--- NOTE | 2020-10-19 19:25 | NUR ---
MS RN NOTES PATIENT C/O OF ACHING 7/10 PAIN IN THE RIGHT HIP. PT WAS GIVEN 2 TABLETS OF NORCO (5/325MG TABLET). WILL CONTINUE TO MONITOR THE PATIENT.
--- NOTE | 2020-10-19 19:30 | NUR ---
MS RN OPENING NOTES PATIENT IS AWAKE LYING IN BED IN HER ROOM. PATIENT IS ALERT AND ORIENTED X 2-3. PATIENT IS STABLE ON ROOM AIR AND IN NO RESPIRATORY DISTRESS. PATIENT IS ABLE TO MAKE HER NEEDS KNOWN. RIGHT UPPER ARM MIDLINE NOTED WHICH IS INTACT, PATENT, AND FLUSHES WELL. SAFETY MEASURES ARE KEPT IN PLACE. BED IS IN A LOCKED POSITION. BED ALARM ON. SIDE RAILS UP X 3. CALL LIGHT IS WITHIN REACH OF THE PATIENT. WILL CONTINUE TO MONITOR THE PATIENT.
[2020-10-19 20:00] VITALS: BP 106/63
[2020-10-19] MEDS: QUETIAPINE FUMARATE 25 MG TABLET PO SCH (20:46)
--- NOTE | 2020-10-19 21:04 | NUR ---
MS RN NOTES PATIENT WAS GIVEN 2 MG OF DILAUDID INTRAVENOUSLY FOR 9/10 ACHING PAIN IN HER RIGHT HIP. WILL CONTINUE TO MONITOR THE PATIENT.
[2020-10-19] MEDS: LORAZEPAM 1 MG TABLET PO PRN (21:23)
[2020-10-20] MEDS: HYDROMORPHONE INJ 2 MG/ML DISP.SYRIN IV PRN ×3 (06:12→20:35)
--- NOTE | 2020-10-20 06:12 | NUR ---
MS RN NOTES PATIENT WAS GIVEN 2 MG OF DILAUDID INTRAVENOUSLY FOR 10/10 ACHING PAIN IN HER RIGHT HIP. WILL CONTINUE TO MONITOR THE PATIENT.
--- NOTE | 2020-10-20 07:40 | NUR ---
MS RN CLOSING NOTES PATIENT WAS LAST SEEN AWAKE LYING IN BED IN HER ROOM. PATIENT IS ALERT AND ORIENTED X 2-3. PATIENT IS STABLE ON ROOM AIR AND IN NO RESPIRATORY DISTRESS. PATIENT IS ABLE TO MAKE HER NEEDS KNOWN. RIGHT UPPER ARM MIDLINE NOTED WHICH IS INTACT, PATENT, AND FLUSHES WELL. SAFETY MEASURES ARE KEPT IN PLACE. BED IS IN A LOCKED POSITION. BED ALARM ON. SIDE RAILS UP X 3. CALL LIGHT IS WITHIN REACH OF THE PATIENT. ENDORSED CARE TO DAY SHIFT NURSE.
--- NOTE | 2020-10-20 07:44 | NUR ---
MS RN OPENING NOTE PATIENT IS IN BED RESTING, PATIENT IS IN NO ACUTE DISTRESS. PATIENT IS ON ROOM AIR, TOLERATING WELL, NO SOB NOTED. PATIENT IS ON THE BED REST PRECAUTIONS. SAFETY PRECAUTIONS ARE ON, BED IS LOCKED IN THE LOWEST POSITION, SIDE RAILS ARE UP, CALL LIGHT WITHIN REACH. WILL CONTINUE TO MONITOR CLOSELY.
[2020-10-20 08:00] VITALS: BP 99/57
[2020-10-20 08:24] LABS: BASOPHILS % (AUTO) 0.5 % (0.0-2.0); EOSINOPHILS % (AUTO) 1.7 % (0.0-6.0); HEMATOCRIT 24 % (33-45); HEMOGLOBIN 8.1 g/dL (11.5-14.8); LYMPHOCYTES # (AUTO) 0.8 /CMM (0.8-4.8); LYMPHOCYTES % (AUTO) 7.5 % (20.0-44.0); MEAN CORPUSCULAR HGB CONC 34 g/dl (31.0-36.0); MEAN CORPUSCULAR VOLUME 101 fL (82-100); MONOCYTES # (AUTO) 1.2 /CMM (0.1-1.30); MONOCYTES % (AUTO) 11.9 % (2.0-12.0); NEUTROPHILS # (AUTO) 7.9 /CMM (1.8-8.9); NEUTROPHILS % (AUTO) 78.4 % (43.0-81.0); PLATELET COUNT (AUTO) 103 /CMM (150-450); RED BLOOD CELL COUNT(AUTO) 2.41 MIL/uL (4.0-5.2)
[2020-10-20 08:37] LABS: CALCIUM, SERUM 8.5 mg/dL (8.5-10.1); CREATININE 0.5 mg/dL (0.6-1.3); MAGNESIUM 1.8 mg/dL (1.8-2.4); PHOSPHORUS 3.2 mg/dL (2.5-4.9); POTASSIUM 4.2 mmol/L (3.5-5.1)
[2020-10-20] MEDS: AMLODIPINE BESYLATE 5 MG TABLET PO SCH (09:00)
[2020-10-20] MEDS: ENOXAPARIN SODIUM 40 MG/0.4 ML DISP.SYRIN SQ SCH (09:00)
[2020-10-20] MEDS: PANTOPRAZOLE 40 MG TABLET.DR PO SCH (09:15)
[2020-10-20] MEDS: GABAPENTIN 300 MG CAPSULE PO SCH ×4 (09:15→20:18)
[2020-10-20] MEDS: predniSONE 1 MG TABLET PO SCH (09:15)
[2020-10-20] MEDS: DULOXETINE HCL 30 MG CAPSULE.DR PO SCH (09:15)
[2020-10-20] MEDS: FOLIC ACID 1 MG TABLET PO SCH (09:15)
[2020-10-20] MEDS: HYDROCODONE/APAP 5/325MG TABLET PO PRN ×2 (09:16→18:12)
[2020-10-20] MEDS: CYCLOBENZAPRINE 10 MG TABLET PO PRN (09:16)
[2020-10-20] MEDS: LEVETIRACETAM (250 MG) 250 MG TABLET PO SCH ×2 (09:32→20:18)
--- NOTE | 2020-10-20 09:35 | NUR ---
MS RN NOTE PATIENT HAS SCHEDULED LOVENOX, PATIENT HEMOGLOBIN IS 7.7, HEMATOCRIT 23, PLATELETS ARE 99, INFORMED DR. LEMOS, PER MD HOLD IT FOR TODAY. MD IS AWARE
[2020-10-20] MEDS: CHOLECALCIFEROL 1,000 UNIT TABLET (VIT D3) PO SCH (10:07)
--- NOTE | 2020-10-20 11:06 | NUR ---
MS RN NOTE PATIENT STATING SHE IS IN PAIN, REQUESTING DILAUDID EVERY 4HRS AND IN BETWEEN NORCO, EDUCATED RISK VS BENEFITS
[2020-10-20 16:00] VITALS: BP 118/62
--- NOTE | 2020-10-20 19:15 | NUR ---
MS RN OPENING NOTE PATIENT IN BED, AWAKE. PATIENT A/OX1-2, PERIODS OF CONFUSION/DELUSION. PATIENT'S BREATHING EVEN AND UNLABORED. IV ACCESS INTACT. DRESSING ON THE RIGHT HIP CLEAN, DRY, AND INTACT. NO NAUSEA AND VOMITING. SAFETY PRECAUTIONS IN PLACE. SIDE RAILS UP AND PADDED, BED IN LOCKED AND LOWEST POSITION, CALL LIGHT WITHIN REACH. ENCOURAGED PATIENT TO CALL IF IN NEED. WILL MONITOR PATIENT CLOSELY.
[2020-10-20 20:00] VITALS: BP 114/79
--- NOTE | 2020-10-20 20:13 | NUR ---
MS RN CLOSING NOTE PATIENT IS IN BED RESTING, PATIENT IS IN NO ACUTE DISTRESS. PATIENT IS ON ROOM AIR, TOLERATING WELL, NO SOB NOTED. PATIENT IS ON THE BED REST PRECAUTIONS. SAFETY PRECAUTIONS ARE ON, BED IS LOCKED IN THE LOWEST POSITION, SIDE RAILS ARE UP, CALL LIGHT WITHIN REACH. ENDORSE PATIENT TO AMMONIA PRINT OPERATOR NURSE FOR CHARLEY.
[2020-10-20] MEDS: QUETIAPINE FUMARATE 25 MG TABLET PO SCH (20:17)
--- NOTE | 2020-10-20 20:35 | NUR ---
MS ROCK NOTE PATIENT GIVEN DILAUDID 2MG FOR HIP PAIN 04/05 ON PAIN SCALE 0-10. Addendum: 10/21/20 at 0751 by HAFSA HIGUERA RN PAIN 8
[2020-10-20] MEDS: LORAZEPAM INJ 2 MG/ML VIAL IV PRN (23:50)
--- NOTE | 2020-10-20 23:50 | NUR ---
MS RN NOTE PATIENT AGITATED AND YELLING. ATIVAN GIVEN FOR AGITATION.
[2020-10-21] MEDS: HYDROMORPHONE INJ 2 MG/ML DISP.SYRIN IV PRN ×3 (05:32→19:59)
--- NOTE | 2020-10-21 05:32 | NUR ---
MS RN NOTE PATIENT GIVEN DILAUDID 2MG FOR HIP PAIN 10/10 ON PAIN SCALE.
--- NOTE | 2020-10-21 07:30 | NUR ---
MS RN CLOSING NOTE PATIENT IN BED RESTING, HIP DRESSING STILL INTACT. PATRICK MIDLINE PATENT AND INTACT. PATIENT STILL EXPERIENCES CONFUSION/DELIRIUM. ALL NEEDS MET AND ATTENDED. PAIN MANAGED DURING THE SHIFT. SAFETY MEASURES MAINTAINED. ENDORSED TO DAY SHIFT NURSE FOR CHARLEY.
[2020-10-21 08:41] VITALS: BP 118/68
[2020-10-21] MEDS: CHOLECALCIFEROL 1,000 UNIT TABLET (VIT D3) PO SCH (10:10)
[2020-10-21] MEDS: DULOXETINE HCL 30 MG CAPSULE.DR PO SCH (10:10)
[2020-10-21] MEDS: FOLIC ACID 1 MG TABLET PO SCH (10:10)
[2020-10-21] MEDS: PANTOPRAZOLE 40 MG TABLET.DR PO SCH (10:10)
[2020-10-21] MEDS: predniSONE 1 MG TABLET PO SCH (10:10)
[2020-10-21] MEDS: AMLODIPINE BESYLATE 5 MG TABLET PO SCH (10:10)
[2020-10-21] MEDS: GABAPENTIN 300 MG CAPSULE PO SCH ×4 (10:10→20:47)
[2020-10-21] MEDS: LEVETIRACETAM (250 MG) 250 MG TABLET PO SCH ×2 (10:11→20:48)
[2020-10-21] MEDS: ENOXAPARIN SODIUM 40 MG/0.4 ML DISP.SYRIN SQ SCH (10:12)
[2020-10-21 11:32] LABS: BASOPHILS % (AUTO) 0.3 % (0.0-2.0); EOSINOPHILS % (AUTO) 1.5 % (0.0-6.0); HEMATOCRIT 22 % (33-45); HEMOGLOBIN 7.6 g/dL (11.5-14.8); LYMPHOCYTES # (AUTO) 0.7 /CMM (0.8-4.8); LYMPHOCYTES % (AUTO) 7.9 % (20.0-44.0); MEAN CORPUSCULAR HGB CONC 34 g/dl (31.0-36.0); MEAN CORPUSCULAR VOLUME 98 fL (82-100); MONOCYTES # (AUTO) 1.1 /CMM (0.1-1.30); MONOCYTES % (AUTO) 12.4 % (2.0-12.0); NEUTROPHILS # (AUTO) 6.7 /CMM (1.8-8.9); NEUTROPHILS % (AUTO) 77.9 % (43.0-81.0); PLATELET COUNT (AUTO) 114 /CMM (150-450); RED BLOOD CELL COUNT(AUTO) 2.27 MIL/uL (4.0-5.2); WHITE BLOOD COUNT (AUTO) 8.6 K/uL (4.3-11.0)
[2020-10-21 12:05] LABS: CALCIUM, SERUM 8.1 mg/dL (8.5-10.1); CREATININE 0.5 mg/dL (0.6-1.3); MAGNESIUM 1.4 mg/dL (1.8-2.4); PHOSPHORUS 3.2 mg/dL (2.5-4.9); POTASSIUM 3.7 mmol/L (3.5-5.1)
[2020-10-21 16:20] VITALS: BP 116/63
[2020-10-21] MEDS: QUETIAPINE FUMARATE 25 MG TABLET PO SCH (17:54)
--- NOTE | 2020-10-21 18:25 | NUR ---
MS RN CLOSING NOTE PATIENT IS IN BED RESTING, PATIENT IS IN NO ACUTE DISTRESS. PATIENT IS ON ROOM AIR, TOLERATING WELL, NO SOB NOTED. PATIENT IS ON THE BED REST PRECAUTIONS. SAFETY PRECAUTIONS ARE ON, BED IS LOCKED IN THE LOWEST POSITION, SIDE RAILS ARE UP, CALL LIGHT WITHIN REACH. ENDORSE PATIENT TO TEXTILES SALES REPRESENTATIVE NURSE FOR CHARLEY.
--- NOTE | 2020-10-21 19:30 | NUR ---
MS RN OPENING NOTE PATIENT IN BED, AWAKE. PATIENT A/OX1-2, PERIODS OF CONFUSION/DELUSION. PATIENT'S BREATHING EVEN AND UNLABORED. IV ACCESS INTACT. DRESSING ON THE RIGHT HIP CLEAN, DRY, AND INTACT. NO NAUSEA AND VOMITING. COMPLAINING OF PAIN ON THE R HIP. SAFETY PRECAUTIONS IN PLACE. SIDE RAILS UP AND PADDED, BED IN LOCKED AND LOWEST POSITION, CALL LIGHT WITHIN REACH. ENCOURAGED PATIENT TO CALL IF IN NEED. WILL MONITOR PATIENT CLOSELY.
[2020-10-21] MEDS: HYDROCODONE/APAP 5/325MG TABLET PO PRN (19:51)
[2020-10-21] MEDS ORDERED: QUETIAPINE FUMARATE 25 MG TABLET PO SCH (20:00)
--- NOTE | 2020-10-21 20:00 | NUR ---
MS RN NOTE PATIENT REFUSED NORCO, ASKED FOR DILAUDID INSTEAD PAIN INCREASED. DILAUDID 2 MG GIVEN FOR HIP PAIN OF 03/06.
--- NOTE | 2020-10-21 20:15 | NUR ---
MS RN NOTE PATIENT TEMPERATURE 99. 4 F. COOLING MEASURES IMPLEMENTED. WILL REASSESS.
[2020-10-21 20:50] VITALS: BP 114/59
[2020-10-21] MEDS ORDERED: CEFTRIAXONE 1 G in IV D5W 50 ML IV SCH (21:00)
--- NOTE | 2020-10-21 21:30 | NUR ---
MS RN NOTE PATIENT'S TEMPERATURE NOW 97.9 F. WILL CONTINUE TO MONITOR PATIENT CLOSELY.
[2020-10-22] MEDS: HYDROMORPHONE INJ 2 MG/ML DISP.SYRIN IV PRN ×4 (03:59→17:14)
--- NOTE | 2020-10-22 03:59 | NUR ---
MS RN NOTE DILAUDID IV 2 MG GIVEN FOR HIP PAIN OF 9/10 ON THE PAIN SCALE OF 0-10.
[2020-10-22 05:32] LABS: COLOR,URINE YELLOW (YELLOW)
[2020-10-22 05:33] LABS: BILIRUBIN,URINE NEGATIVE (NEGATIVE); LEUKOCYTE ESTERASE ,URINE TRACE (NEGATIVE); NITRITE, URINE NEGATIVE (NEGATIVE); PROTEIN,URINE NEGATIVE (NEGATIVE); UGLUCOSE NEGATIVE (NEGATIVE); UROBILINOGEN,URINE 0.2 EU/dL (0.2)
[2020-10-22 05:35] LABS: BACTERIA,URINE Many /HPF (None Seen); RBC,URINE 0-2 /HPF (0-2); SQUAMOUS EPITHELIAL CELL,UR Few /HPF (None Seen)
[2020-10-22 06:07] LABS: BASOPHILS % (AUTO) 0.3 % (0.0-2.0); EOSINOPHILS % (AUTO) 3.5 % (0.0-6.0); HEMATOCRIT 21 % (33-45); HEMOGLOBIN 7.2 g/dL (11.5-14.8); LYMPHOCYTES # (AUTO) 0.6 /CMM (0.8-4.8); LYMPHOCYTES % (AUTO) 9.2 % (20.0-44.0); MEAN CORPUSCULAR HGB CONC 34 g/dl (31.0-36.0); MEAN CORPUSCULAR VOLUME 98 fL (82-100); MONOCYTES % (AUTO) 14.7 % (2.0-12.0); NEUTROPHILS # (AUTO) 5.1 /CMM (1.8-8.9); NEUTROPHILS % (AUTO) 72.3 % (43.0-81.0); PLATELET COUNT (AUTO) 117 /CMM (150-450); RED BLOOD CELL COUNT(AUTO) 2.16 MIL/uL (4.0-5.2)
[2020-10-22 06:58] LABS: CREATININE 0.4 mg/dL (0.6-1.3); MAGNESIUM 1.6 mg/dL (1.8-2.4); PHOSPHORUS 3.4 mg/dL (2.5-4.9); POTASSIUM 3.6 mmol/L (3.5-5.1)
--- NOTE | 2020-10-22 07:15 | NUR ---
MS RN CLOSING NOTE PATIENT IN BED RESTING, EASILY AROUSED, STILL EXPERIENCES DELIRIUM/HALLUCINATIONS/CONFUSION. A/O X 1-2. BREATHING EVEN AND UNLABORED. IN NO APPARENT DISTRESS. SAFETY MEASURES MAINTAINED. ALL NEEDS MET AND ATTENDED. ALL ORDERS CARRIED OUT. PRN AND ROUTINE MEDICATIONS GIVEN. ENDORSED TO DAY SHIFT NURSE FOR CHARLEY.
--- NOTE | 2020-10-22 08:00 | NUR ---
RN MS NOTES Patient awake, alert, and oriented to self. C/o pain to hips and feet with relief from PRN dilaudid. No signs of respiratory or cardiac distress. VSS. c/o anxiety but was reassured by presence of nurse.
[2020-10-22] MEDS: ENOXAPARIN SODIUM 40 MG/0.4 ML DISP.SYRIN SQ SCH (08:31)
[2020-10-22] MEDS: GABAPENTIN 300 MG CAPSULE PO SCH ×3 (08:32→17:22)
[2020-10-22] MEDS: CHOLECALCIFEROL 1,000 UNIT TABLET (VIT D3) PO SCH (08:32)
[2020-10-22] MEDS: predniSONE 1 MG TABLET PO SCH (08:33)
[2020-10-22] MEDS: LEVETIRACETAM (250 MG) 250 MG TABLET PO SCH (08:33)
[2020-10-22] MEDS: PANTOPRAZOLE 40 MG TABLET.DR PO SCH (08:33)
[2020-10-22] MEDS: QUETIAPINE FUMARATE 25 MG TABLET PO SCH ×2 (08:33→17:14)
[2020-10-22] MEDS: FOLIC ACID 1 MG TABLET PO SCH (08:33)
[2020-10-22] MEDS: DULOXETINE HCL 30 MG CAPSULE.DR PO SCH (08:33)
[2020-10-22 08:49] VITALS: BP 103/68
[2020-10-22] MEDS: AMLODIPINE BESYLATE 5 MG TABLET PO SCH (08:50)
[2020-10-22] MEDS ORDERED: QUET25TA PO (08:56)
[2020-10-22] MEDS ORDERED: LEVO500T90 PO (08:56)
[2020-10-22] MEDS: HYDROCODONE/APAP 5/325MG TABLET PO PRN (10:49)
[2020-10-22] MEDS: Magnesium 1GM/D5W 100ML PREMIX 100 ML IV SCH ×2 (11:06→12:28)
[2020-10-22 16:15] VITALS: BP 104/68
--- NOTE | 2020-10-22 17:50 | NUR ---
RN MS NOTES PT IN BED, AWAKE, ALERT AND ORIENTED, PAIN MEDS GIVEN FOR PAIN MANAGEMENT, NOT IN DISTRESS, TOLERATES ROOM AIR, SEEN BY DR. PENA, DRESSING CHANGE DONE BY MD, NO BLEEDING OR DRAINAGE NOTED, DISCHARGE ORDER GIVEN BY DR. LEMOS, DISCHARGE AND MEDICATION INSTRUCTIONS GIVEN TO PT, VERBALIZED UNDERSTANDING, BELONGINGS ACCOUNTED FOR, REPORT GIVEN TO [place] AT [facility], PICKED UP BY 2 AMBULANCE PERSONNEL, LEFT VIA [facility] IN STABLE CONDITION.
--- NOTE | 2020-10-22 18:29 | NUR ---
DISCHARGE NOTES RN Patient discharged at 1745 to [place] [facility]. In stable condition. VS WNL. A&Ox2 to person and place. Report called in to SNF RN. Pain medication given prior to d/c with effectiveness. Patient educated on aftercare instructions for her dx and instructions to continue medications as ordered, follow up with PCP, follow up with ortho, and if emergency report back to ER. Midline removed prior to discharge. Abductor pillow applied and report given to 2 information systems professor who picked patient up and transport her to [place].
[2020-11-01] MEDS ORDERED: ASPIRIN 325 MG TABLET PO SCH (09:00)
== END 2020-10-22 17:50 | DRG 301 ==
LOC: ER 20:24 → MEDSG1 23:56 → MED 10-18 03:32
PROVIDERS: ADMIT Student in an Organized Health Care Education/Training Program; ATTEND Internal Medicine
PROC: 0SRR0JZ Replacement of Right Hip Joint, Femoral Surface with Synthetic Substitute, Open Approach (ICD-10-PCS; principal; 2020-10-15)
DX: S72.011A Unspecified intracapsular fracture of right femur, initial encounter for closed fracture (principal); K85.90 Acute pancreatitis without necrosis or infection, unspecified; D69.6 Thrombocytopenia, unspecified; D57.1 Sickle-cell disease without crisis; Y92.89 Other specified places as the place of occurrence of the external cause; G40.909 Epilepsy, unspecified, not intractable, without status epilepticus; I10 Essential (primary) hypertension; E87.6 Hypokalemia; F29 Unspecified psychosis not due to a substance or known physiological condition; M16.0 Bilateral primary osteoarthritis of hip; W01.0XXA Fall on same level from slipping, tripping and stumbling without subsequent striking against object, initial encounter; N39.0 Urinary tract infection, site not specified; M79.7 Fibromyalgia; D72.829 Elevated white blood cell count, unspecified; D64.9 Anemia, unspecified; F39 Unspecified mood [affective] disorder; M85.80 Other specified disorders of bone density and structure, unspecified site; G62.9 Polyneuropathy, unspecified; F10.10 Alcohol abuse, uncomplicated; Z20.822 Contact with and (suspected) exposure to COVID-19; Y90.9 Presence of alcohol in blood, level not specified; F05 Delirium due to known physiological condition
CPT/HCPCS: 36410; 36415; 70450-TC; 71045-TC; 73501; 73502; 73700-TC; 80048-TC; 80061-TC; 81001; 83735-TC; 84100-TC; 84443-TC; 85025-TC; 85610-TC; 85730-TC; 86850-TC; 87040-TC; 87081-TC; 87086-TC; 88305-TC; 88311-TC; 97110-TC; 97116-TC; 97530-TC; A4217; A6209; C1776; C9113; C9803; G0378; J0330; J0690; J0696; J1100; J1170; J1650; J1885; J2060; J2250; J2270; J2405; J2704; J3010; J3475; J3490; J7030; J7050; J7060; J7512; Q0162

== ENCOUNTER 2020-12-15 19:21 | Emergency (ER) | payer OTHER ==
[~2020-12-15] VITALS: Ht 162.6 cm; Wt 72.6 kg
[~2020-12-15 19:21] MED LIST changes: +AMLO-212 PO; -AMPI500C11 PO; +BUPR1FIL SL; +CHOL400T11 PO; +CYCL30CA PO; +DULO20CA PO; +FOLI0.4T6 PO; +GABA600T12 PO; +LEVE100023 PO; +LEVO500T90 PO; +METH2.5T PO; +PRED1TAB PO; +QUET25TA PO
--- NOTE | 2020-12-15 21:00 | NUR ---
BIBS FOR C/O WORSENING BILATERAL FOOT AND ANKLE PAIN AND EDEMA X 3 WEEKS
[2020-12-15] MEDS ORDERED: IBUP-1955 PO (21:56)
[2020-12-15] MEDS ORDERED: HYDROCODONE/APAP 5/325MG TABLET ONE (21:58)
[2020-12-15] MEDS ORDERED: ONDANSETRON 4 MG TAB.RAPDIS ONE (21:58)
[2020-12-15] MEDS ORDERED: ONDANSETRON 4 MG TAB.RAPDIS SL ONE (22:00)
[2020-12-15] MEDS ORDERED: HYDROCODONE/APAP 5/325MG TABLET PO ONE (22:00)
--- NOTE | 2020-12-15 22:13 | NUR ---
Patient discharged to home in stable condition. Written and verbal after care instructions given. Patient verbalizes understanding of instruction.
[2020-12-15 22:14] VITALS: BP 121/74
== END 2020-12-15 22:14 | disposition home or self-care (01) ==
LOC: ER 19:22
DX: R60.0 Localized edema (principal); I10 Essential (primary) hypertension; G40.909 Epilepsy, unspecified, not intractable, without status epilepticus; I25.10 Atherosclerotic heart disease of native coronary artery without angina pectoris; D64.9 Anemia, unspecified; G89.4 Chronic pain syndrome; Z98.890 Other specified postprocedural states; Z79.899 Other long term (current) drug therapy
CPT/HCPCS: 73610 ×2; 93970; 99284; Q0162

== ENCOUNTER 2021-01-23 12:29 | Emergency (ER) | payer OTHER ==
[~2021-01-23] VITALS: Ht 167.6 cm; Wt 72.6 kg
[~2021-01-23 12:29] MED LIST changes: +IBUP-1955 PO
[2021-01-23 13:16] VITALS: BP 134/62
[2021-01-23] MEDS ORDERED: DIAZEPAM 5 MG TABLET ONE ×2 (14:13→14:28)
--- NOTE | 2021-01-23 14:17 | NUR ---
MEDICATED ORDERED,TO RADIOLOGY
[2021-01-23] MEDS ORDERED: DIAZEPAM 5 MG TABLET PO ONE (14:30)
[2021-01-23] MEDS ORDERED: HYDROCODONE/APAP 5/325MG TABLET ONE (15:58)
[2021-01-23] MEDS ORDERED: HYDROCODONE/APAP 5/325MG TABLET PO ONE (16:00)
--- NOTE | 2021-01-23 16:05 | NUR ---
Patient discharged to home in stable condition. Written and verbal after care instructions given. Patient verbalizes understanding of instruction.
--- NOTE | 2021-01-23 16:06 | NUR ---
BULL FLOAT FINISHER BY DAUGHTER
== END 2021-01-23 16:06 | disposition home or self-care (01) ==
LOC: ER 12:44
DX: G89.29 Other chronic pain (principal); M54.5 Low back pain; I10 Essential (primary) hypertension; Z79.899 Other long term (current) drug therapy
CPT/HCPCS: 72131-TC

== ENCOUNTER 2025-03-26 13:41 | Emergency (ER) | payer OTHER ==
[~2025-03-26] VITALS: Ht 162.6 cm; Wt 71.2 kg
[2025-03-26 13:51] VITALS: TEMP 98.2
[2025-03-26] MEDS ORDERED: LIDOCAINE 5% (PATCH) 1 EA PATCH TP ONE (14:07)
[2025-03-26] MEDS ORDERED: KETOROLAC TROMETHAMINE 15 MG/ML VIAL ONE (14:08)
[2025-03-26] MEDS ORDERED: ACETAMINOPHEN ES 500 MG TABLET ONE (14:08)
[2025-03-26] MEDS: KETOROLAC TROMETHAMINE 15 MG/ML VIAL IM ONE (14:25)
[2025-03-26] MEDS: ACETAMINOPHEN ES 500 MG TABLET PO ONE (14:26)
[2025-03-26] MEDS: LIDOCAINE 5% (PATCH) 1 EA PATCH TP SCH (14:26)
[2025-03-26] MEDS ORDERED: HYDR-3976 GT (15:02)
[2025-03-26] MEDS: HYDROCODONE/APAP 7.5/325MG 1 EACH TABLET PO ONE (15:08)
[2025-03-26] MEDS ORDERED: HYDROCODONE/APAP 5/325MG TABLET ONE (15:10)
[2025-03-26] MEDS: HYDROCODONE/APAP 5/325MG TABLET PO ONE (15:17)
[2025-03-26 15:18] VITALS: BP 124/90; O2SAT 98
[2025-03-26] MEDS ORDERED: HYDR-3976 PO ×2 (15:52→16:38)
== END 2025-03-26 15:18 | disposition home or self-care (01) ==
LOC: ER 13:45
DX: M25.551 Pain in right hip (principal); M54.50 Low back pain, unspecified; I11.9 Hypertensive heart disease without heart failure; G89.29 Other chronic pain; Z79.899 Other long term (current) drug therapy; Z96.641 Presence of right artificial hip joint
CPT/HCPCS: 99284; 96372; 73552; 73502; J1885